=== PATIENT | female | born 1950 | race Caucasian/White ===

== ENCOUNTER 2019-08-16 08:12 | Outpatient (CLI) | payer MEDICARE, SELFPAY ==
[2019-08-16 09:06] LABS: Blood Urea Nitrogen 13 mg/dL (7-17); Calcium 8.7 mg/dL (8.4-10.2); Carbon Dioxide 27 mmol/L (22-30); Chloride 104 mmol/L (98-107); Cholesterol 157 mg/dL (0-200); Estimated Glomerular Filt Rate > 60; Glucose 104 mg/dL (65-105); HDL Direct 28 mg/dL; Magnesium 1.8 mg/dL (1.6-2.3); Potassium 4.7 mmol/L (3.4-5.0); Sodium 139 mmol/L (137-145); Triglycerides 146 mg/dL (<150)
[2019-08-16 09:17] LABS: LDL Cholesterol Direct 113 mg/dL
== END 2019-08-16 08:13 | disposition home or self-care (01) ==
PROVIDERS: PCP Family Medicine; Visit Provider Internal Medicine Cardiovascular Disease
DX: I48.91 Unspecified atrial fibrillation (principal); E78.5 Hyperlipidemia, unspecified
CPT/HCPCS: 36415; 80048; 80061; 83735

== ENCOUNTER 2020-03-10 14:35 | Outpatient (CLI) | payer MEDICARE, SELFPAY ==
--- NOTE | 2020-03-10 14:38 | ECHO_ITS ---
Patient Info Name: Susan Aranda Age: 69 years : 1950 Gender: Female Ht: 65 in Wt: 210 lbs BSA: 2.13 m2 HR: 80 bpm BP: 125 / 88 mmHg Heart Rhythm: Atrial Fibrillation Exam Date: 03/10/2020 3:22 PM Exam Location: [facility] Patient Status: Outpatient Admit Date: 03/10/2020 Staff Ordering Physician: Jevon Rosales DO Vice President Of Communications: Rod Torres RDCS Attending Provider: Jevon Rosales DO Referring Physician: Bobby AARON; Exam Type: CA echo doppler color flow Study Info Indications - I50.810 - Right heart failure; unspecified Complete two-dimensional, color flow and Doppler transthoracic echocardiogram is performed. History/Risk Factors Right heart failure. Summary 1. Complete two-dimensional, color flow and Doppler transthoracic echocardiogram is performed. 2. Left ventricular chamber dimension is normal. 3. Left ventricular systolic function is mildly reduced, estimated at 45-50%. 4. Left ventricular septal wall motion is abnormal with septal motion related to bundle branch block. 5. The left ventricular diastolic function is normal. 6. E/e' 7 is not elevated. 7. Atrial fibrillation. 8. Right ventricular chamber dimension is moderately enlarged. 9. Left atrial chamber dimension is moderately enlarged. 10. Right atrial chamber dimension is severely enlarged. 11. There is mild mitral valve regurgitation. 12. There is moderate tricuspid valve regurgitation. 13. No pulmonary hypertension, estimated pulmonary arterial systolic pressure is 28 mmHg. 14. Dilated inferior vena cava with <50% collapse upon inspiration consistent with significantly elevated right atrial pressure, 15 mmHg. Left Ventricle Atrial fibrillation. E/e' 7 is not elevated. Left ventricular chamber dimension is normal. Left ventricular systolic function is mildly reduced, estimated at 45-50%. Left ventricular septal wall motion is abnormal with septal motion related to bundle branch block. The left ventricular diastolic function is normal. Right Ventricle Right ventricular systolic function is normal with normal TAPSE 1.8 cm.. Right ventricular chamber dimension is moderately enlarged. Left Atria Left atrial chamber dimension is moderately enlarged. Right Atria Right atrial chamber dimension is severely enlarged. Aortic Valve The aortic valve is trileaflet. There is no aortic valve stenosis. There is no aortic valve regurgitation. Pulmonic Valve There is no pulmonic regurgitation. Mitral Valve There is no mitral valve stenosis. There is mild mitral valve regurgitation. Tricuspid Valve There is moderate tricuspid valve regurgitation. No pulmonary hypertension, estimated pulmonary arterial systolic pressure is 28 mmHg. Pericardium/Pleural There is no pericardial effusion. Inferior Vena Cava Dilated inferior vena cava with <50% collapse upon inspiration consistent with significantly elevated right atrial pressure, 15 mmHg. Aorta The aortic root size at the sinus of Valsalva is normal. Left Ventricular Outflow Tract Name Value Normal LVOT 2D LVOT Diameter 2.0 cm LVOT Doppler
== END 2020-03-10 14:36 | disposition home or self-care (01) ==
PROVIDERS: PCP Family Medicine; Visit Provider Internal Medicine Cardiovascular Disease
DX: I50.810 Right heart failure, unspecified (principal); I48.91 Unspecified atrial fibrillation; I34.0 Nonrheumatic mitral (valve) insufficiency; I36.1 Nonrheumatic tricuspid (valve) insufficiency
CPT/HCPCS: 93306

== ENCOUNTER 2020-04-13 10:28 | Outpatient (CLI) | payer MEDICARE, SELFPAY ==
--- NOTE | ~2020-04-13 | MM_ITS ---
EXAMINATION: MM screening angi BI w alon HISTORY: Screening TECHNIQUE: Craniocaudal and mediolateral oblique 3-D tomosynthesis images were obtained and synthetic 2-D images were generated. CAD analysis was submitted and interpreted. COMPARISON: Comparison to multiple prior studies sequentially, with oldest reviewed study dated 03/09. BREAST PARENCHYMAL COMPOSITION: There are scattered areas of fibroglandular density. FINDINGS: There is no evidence of suspicious mass, calcification, or architectural distortion to sugg est malignancy in either breast. There has been no suspicious interval change. IMPRESSION: 1. No mammographic evidence of malignancy. 2. Recommend routine screening mammography in one year. BI-RADS Category 1: Negative Reviewed, dictated and finalized at location A.
== END 2020-04-13 10:29 | disposition home or self-care (01) ==
LOC: ANHIMG 10:32
PROVIDERS: PCP Family Medicine; Visit Provider Family Medicine
DX: Z12.31 Encounter for screening mammogram for malignant neoplasm of breast (principal)
CPT/HCPCS: 77063; 77067

== ENCOUNTER 2021-04-20 09:42 | Outpatient (CLI) | payer MEDICARE, SELFPAY ==
[2021-04-20 10:41] LABS: Alanine Aminotransferase 13 U/L (4-35); Albumin Level 4.7 g/dL (3.5-5.1); Alkaline Phosphatase 86 U/L (38-126); Anion Gap 11 mmol/L (8-16); Aspartate Amino Transferase 25 U/L (14-36); Bilirubin,Total 0.7 mg/dL (0.2-1.3); Blood Urea Nitrogen 12 mg/dL (7-17); Calcium 9.3 mg/dL (8.4-10.2); Carbon Dioxide 29 mmol/L (22-30); Chloride 102 mmol/L (98-107); Cholesterol 133 mg/dL (0-200); Estimated Glomerular Filt Rate > 60; Glucose 110 mg/dL (65-110); HDL Direct 27 mg/dL; Potassium 4.1 mmol/L (3.4-5.0); Sodium 142 mmol/L (137-145); Triglycerides 61 mg/dL (<150)
[2021-04-20 10:52] LABS: LDL Cholesterol Direct 91 mg/dL
== END 2021-04-20 09:43 | disposition home or self-care (01) ==
PROVIDERS: PCP Family Medicine; Visit Provider Internal Medicine Cardiovascular Disease
DX: E78.5 Hyperlipidemia, unspecified (principal)
CPT/HCPCS: 36415; 80053; 80061; 83735

== ENCOUNTER 2021-06-24 09:26 | Outpatient (CLI) | payer MEDICARE, SELFPAY ==
--- NOTE | ~2021-06-24 | MM_ITS ---
EXAMINATION: MM screening angi BI w alon HISTORY: Screening mammogram TECHNIQUE: Craniocaudal and mediolateral oblique 3-D tomosynthesis images were obtained and synthetic 2-D images were generated. CAD analysis was submitted and interpreted. COMPARISON: 04/13/2020, 03/26/2019, 03/09/2017 bilateral screening mammogram examinations BREAST PARENCHYMAL COMPOSITION: The breasts are almost entirely fatty. FINDINGS: There is no evidence of suspicious mass, calcification, or architectural distortion to sugg est malignancy in either breast. There has been no suspicious interval change. IMPRESSION: 1. No mammographic evidence of malignancy. 2. Recommend routine screening mammography in one year. BI-RADS Category 1: Negative Reviewed, dictated and finalized at location A. RTISING SOLICITOR
--- NOTE | ~2021-06-24 | DEXA_ITS ---
Bone Density Report Name: CHRIS MENA Age: 71 Sex: Female Ethnicity: White Date of : 1950 Indication: hyperparathyroidism; height loss; prior fracture; Referring Provider: Eva Palmer Study: Bone densitometry was performed. Exam Date: June 24, 2021 Accession number: [id number] Bone Density: Region BMD T-score Z-score Classification AP Spine (L1, L4) 0.906 -1.2 1.0 Osteopenia Femoral Neck (Left) 0.645 -1.8 0.1 Osteopenia Total Hip (Left) 0.924 -0.1 1.5 Normal Total Hip Bilateral Avg 0.873 -0.6 1.1 Normal Femoral Neck (Right) 0.672 -1.6 0.3 Osteopenia Total Hip (Right) 0.821 -1.0 0.6 Normal World Health Organization criteria for BMD impression classify patients as: Normal (T-score at or above -1.0), Osteopenia (T-score between -1.0 and -2.5), or Osteoporosis (T-score at or below -2.5). 10-year Fracture Risk(1): Major Osteoporotic Fracture 17% Hip Fracture 3.1% Reported Risk Factors: [place] (), Neck BMD=0.645, BMI=33.8, previous fracture (1) FRAX(R) Version 3.08. Fracture probability calculated for an untreated patient. Fracture probability may be lower if the patient has received treatment. Previous Exams: Region Exam Age BMD T-score BMD Change BMD Change Date g/cm2 vs Baseline vs Previous Total Hip(Left) 06/24/2021 71 0.924 -0.1 -0.019(-2.0%) 0.018(2.0%) 03/26/2019 69 0.906 -0.3 -0.037(-3.9%)* -0.037(-3.9%)* 03/09/2017 66 0.943 0.0 Total Hip(Right) 06/24/2021 71 0.821 -1.0 -0.100(-10.8%) -0.042(-4.9%)* 03/26/2019 69 0.863 -0.6 -0.058(-6.3%)* -0.058(-6.3%)* 03/09/2017 66 0.921 -0.2 *Denotes significance at 95% confidence level, LSC for Total Hip = 0.027 g/cm2 Clinical Information Provided by Patient: Has had a low trauma fracture Has used the following medications: Vitamin D, Calcium Has the following medical conditions: Hyperparathyroidism Patient maximum height was 65 Menopause Age: 49 No regular weight bearing exercise Onset of menses at age 11 Number of children 4 Impression: The patient has low bone mass, based on the Left Femoral Neck T-score. The patient has an estimated ten-year risk of hip fracture of 3.1% and an estimated ten-year risk of major fracture of 17%, based on the WHO FRAX algorithm. The patient has risk factors, including: previous fracture. The BMD for the Total Hip(Right) decreased, changing by -4.9% since the last DXA exam. Discussion: BONE DENSITY IS LOW AT ONE OR MORE SKELETAL SITES. THE
== END 2021-06-24 09:27 | disposition home or self-care (01) ==
LOC: ANHIMG 09:28
PROVIDERS: PCP Family Medicine; Visit Provider Student in an Organized Health Care Education/Training Program
DX: Z12.31 Encounter for screening mammogram for malignant neoplasm of breast (principal); Z78.0 Asymptomatic menopausal state; M85.88 Other specified disorders of bone density and structure, other site; M85.852 Other specified disorders of bone density and structure, left thigh; M85.851 Other specified disorders of bone density and structure, right thigh
CPT/HCPCS: 77063; 77067; 77080

== ENCOUNTER 2021-11-04 12:27 | Outpatient (CLI) | payer MEDICARE, SELFPAY ==
--- NOTE | 2021-11-04 13:03 | ECHO_ITS ---
Patient Info Name: Susan Aranda Age: 71 years : 1950 Gender: Female Ht: 65 in Wt: 200 lbs BSA: 2.07 m2 HR: 72 bpm BP: 152 / 109 mmHg Technical Quality: Good Exam Date: 11/04/2021 1:20 PM Exam Location: [facility] Patient Status: Outpatient Admit Date: 11/04/2021 Staff Ordering Physician: Jevon Rosales DO [employer] Director: Toby Cruz RDCS, RT Attending Provider: Jevon Rosales DO Referring Physician: Bobby AARON; Exam Type: CA echo doppler color flow Study Info Indications I50.9 - Heart failure, unspecified Complete two-dimensional, color flow and Doppler transthoracic echocardiogram is performed. Strain analysis performed. Summary 1. Complete two-dimensional, color flow and Doppler transthoracic echocardiogram is performed. 2. Left ventricular chamber dimension is mildly enlarged. 3. Left ventricular systolic function is normal, estimated at 55-60%. 4. The left ventricular diastolic function is abnormal. 5. Global longitudinal strain is abnormal at -12.7%. 6. Atrial fibrillation. 7. Right ventricular chamber dimension is mildly enlarged. 8. Left atrial chamber dimension is moderately enlarged. 9. Right atrial chamber dimension is severely enlarged. 10. There is mild aortic valve sclerosis. 11. There is moderate to severe mitral valve regurgitation. ERO 0.1 cm2, RF 19%, RV 19 ml. 12. There is severe tricuspid valve regurgitation. 13. Mild pulmonary hypertension, estimated pulmonary arterial systolic pressure is 43 mmHg. 14. Small atheroma in anterior and posterior aortic root. 15. Dilated inferior vena cava with >50% collapse upon inspiration consistent with elevated right atrial pressure, 10 mmHg. Left Ventricle Atrial fibrillation. Global longitudinal strain is abnormal at -12.7%. Left ventricular chamber dimension is mildly enlarged. Left ventricular systolic function is normal, estimated at 55-60%. The left ventricular diastolic function is abnormal. Right Ventricle Right ventricular systolic function is normal and normal TAPSE 1.8 cm. Right ventricular chamber dimension is mildly enlarged. Left Atria Left atrial chamber dimension is moderately enlarged. Right Atria Right atrial chamber dimension is severely enlarged. Aortic Valve The aortic valve is trileaflet. There is mild aortic valve sclerosis. There is no aortic valve stenosis. There is no aortic valve regurgitation. Pulmonic Valve There is no pulmonic regurgitation. Mitral Valve There is moderate to severe mitral valve regurgitation. ERO 0.1 cm2, RF 19%, RV 19 ml. There is no mitral valve stenosis. Tricuspid Valve There is severe tricuspid valve regurgitation. Mild pulmonary hypertension, estimated pulmonary arterial systolic pressure is 43 mmHg. Pericardium/Pleural There is no pericardial effusion. Inferior Vena Cava Dilated inferior vena cava with >50% collapse upon inspiration consistent with elevated right atrial pressure, 10 mmHg. Aorta Small atheroma in anterior and posterior aortic root. The aortic root size at the sinus of Valsalva is normal. Left Ventricular Outflow Tract Name Value Normal LVOT 2D LVOT Diameter 2.0 cm LVOT Doppler
== END 2021-11-04 12:28 | disposition home or self-care (01) ==
PROVIDERS: PCP Family Medicine; Visit Provider Internal Medicine Cardiovascular Disease
DX: I50.810 Right heart failure, unspecified (principal); I08.3 Combined rheumatic disorders of mitral, aortic and tricuspid valves
CPT/HCPCS: 93306

== ENCOUNTER 2021-12-02 13:49 | Outpatient (CLI) | payer MEDICARE, SELFPAY ==
--- NOTE | ~2021-12-02 | XR_ITS ---
EXAMINATION: XR foot RT min 3V DATE: 12/02/2021 14:12 INDICATION: Pain, swelling and erythema at the right third toe. TECHNIQUE: Dorsoplantar, two oblique and lateral views of the right foot were obtained. COMPARISON: None. FINDINGS: Alignment is normal. No fracture. Polyarticular arthritis, moderate severity at the third and fourth distal interphalangeal joints with central gullwing erosions at the base of the third and fourth dist al phalanges. There is soft tissue swelling about the third distal interphalangeal joint. Mild osteoa rthritis at the first metatarsophalangeal and a few additional interphalangeal joints. Small plantar calcaneal spur. IMPRESSION: 1. 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 Reviewed, dictated and finalized at location B. IMPRESSION: 1. 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
[2021-12-02 14:30] LABS: Basophils Absolute Auto 0.1 K/mm3 (0.0-0.1); Basophils Percent Auto 0.6 % (0.2-1.2); Eosinophils Absolute Auto 0.1 K/mm3 (0-0.3); Eosinophils Percent Auto 1.3 % (0-4.4); Hemoglobin 12.8 g/dL (12.0-15.0); Immature Granulocyte Absolute 0.05 K/mm3 (0.00-0.031); Immature Granulocyte Percent A 0.5 % (0-0.5); Lymphocytes Absolute Auto 3.15 K/mm3 (0.9-3.2); Lymphocytes Percent Auto 29.7 % (18.3-44.2); Mean Corpuscular Hemoglobin 31.3 pg (26-34); Mean Corpuscular Volume 97.8 fl (80-100); Mean Platelet Volume 9.4 fl (7.4-10.4); Monocytes Absolute Auto 0.9 K/mm3 (0.1-0.6); Neutrophils Absolute Auto 6.4 K/mm3 (1.3-6.7); Neutrophils Percent Auto 59.9 % (45.5-73.1); Platelet Count Result 261 k/mm3 (150-375); Red Blood Count 4.09 M/mm3 (4.2-5.4); Red Cell Distribution Width 14.5 % (11.5-14.5); White Blood Count 10.6 K/mm3 (4.5-10.0)
[2021-12-02 14:49] LABS: Alanine Aminotransferase 18 U/L (6-35); Albumin Level 4.5 g/dL (3.5-5.1); Alkaline Phosphatase 76 U/L (38-126); Anion Gap 9 mmol/L (8-16); Aspartate Amino Transferase 28 U/L (14-36); Bilirubin,Total 0.6 mg/dL (0.2-1.3); Blood Urea Nitrogen 16 mg/dL (7-17); Calcium 9.6 mg/dL (8.4-10.2); Carbon Dioxide 25 mmol/L (22-30); Chloride 106 mmol/L (98-107); Estimated Glomerular Filt Rate > 60; Glucose 90 mg/dL (65-110); Potassium 4.3 mmol/L (3.4-5.0); Sodium 140 mmol/L (137-145); Uric Acid 8.8 mg/dL (2.5-7.5)
[2021-12-02 18:01] LABS: Vitamin D 25 Hydroxy 31.4 ng/mL
[2021-12-02 18:44] LABS: Hemoglobin A1C 6.1 % (<5.7)
== END 2021-12-02 13:50 | disposition home or self-care (01) ==
PROVIDERS: PCP Family Medicine; Visit Provider Family Medicine
DX: M79.674 Pain in right toe(s) (principal); M79.89 Other specified soft tissue disorders; R73.9 Hyperglycemia, unspecified; M10.00 Idiopathic gout, unspecified site; I48.91 Unspecified atrial fibrillation; E55.9 Vitamin D deficiency, unspecified; M19.071 Primary osteoarthritis, right ankle and foot
CPT/HCPCS: 36415; 73630; 80053; 82306; 83036; 84443; 84550; 85025

== ENCOUNTER 2022-05-10 08:29 | Outpatient (CLI) | payer MEDICARE, SELFPAY ==
--- NOTE | 2022-05-10 08:54 | ECHO_ITS ---
Patient Info Name: Susan Aranda Age: 72 years : 1950 Gender: Female Ht: 65 in Wt: 190 lbs BSA: 2.02 m2 HR: 78 bpm BP: 130 / 67 mmHg Technical Quality: Good Exam Date: 05/10/2022 9:19 AM Exam Location: [facility] Patient Status: Outpatient Admit Date: 05/10/2022 Staff Ordering Physician: Jevon Rosales DO Production Floater: Toby Cruz RDCS, RT Attending Provider: Jevon Rosales DO Referring Physician: Bobby AARON; Exam Type: CA echo doppler color flow Study Info Indications R01.1 - Cardiac murmur, unspecified Complete two-dimensional, color flow and Doppler transthoracic echocardiogram is performed. Strain analysis performed. Summary 1. Complete two-dimensional, color flow and Doppler transthoracic echocardiogram is performed. 2. Left ventricular chamber dimension is normal. 3. Left ventricular systolic function is normal, estimated at 60-65%. 4. The left ventricular diastolic function is normal. 5. E/e' 8 is minimally elevated. 6. Global longitudinal strain is abnormal at -12.6%. 7. Atrial fibrillation. 8. Left atrial chamber dimension is severely enlarged. 9. Right atrial chamber dimension is severely enlarged. 10. There is moderate aortic valve sclerosis. 11. There is moderate to severe mitral valve regurgitation. 12. There is moderate tricuspid valve regurgitation. 13. No pulmonary hypertension, estimated pulmonary arterial systolic pressure is 32 mmHg. 14. Dilated inferior vena cava with >50% collapse upon inspiration consistent with elevated right atrial pressure, 10 mmHg. Left Ventricle E/e' 8 is minimally elevated. Atrial fibrillation. Global longitudinal strain is abnormal at -12.6%. Left ventricular chamber dimension is normal. Left ventricular systolic function is normal, estimated at 60-65%. The left ventricular diastolic function is normal. Right Ventricle Right ventricular chamber dimension is normal. Right ventricular systolic function is normal. Left Atria Left atrial chamber dimension is severely enlarged. Right Atria Right atrial chamber dimension is severely enlarged. Aortic Valve The aortic valve is trileaflet. There is moderate aortic valve sclerosis. There is no aortic valve stenosis. There is no aortic valve regurgitation. Pulmonic Valve There is no pulmonic regurgitation. Mitral Valve There is no mitral valve stenosis. There is moderate to severe mitral valve regurgitation. Tricuspid Valve There is moderate tricuspid valve regurgitation. No pulmonary hypertension, estimated pulmonary arterial systolic pressure is 32 mmHg. Pericardium/Pleural There is no pericardial effusion. Inferior Vena Cava Dilated inferior vena cava with >50% collapse upon inspiration consistent with elevated right atrial pressure, 10 mmHg. Aorta The aortic root size at the sinus of Valsalva is normal. Left Ventricular Outflow Tract Name Value Normal LVOT 2D LVOT Diameter 1.9 cm LVOT Doppler LVOT Peak Gradient 6 mmHg LVOT Mean Gradient 3 mmHg LVOT VTI 25 cm
== END 2022-05-10 08:30 | disposition home or self-care (01) ==
PROVIDERS: PCP Family Medicine; Visit Provider Internal Medicine Cardiovascular Disease
DX: I48.91 Unspecified atrial fibrillation (principal); I36.1 Nonrheumatic tricuspid (valve) insufficiency; I35.1 Nonrheumatic aortic (valve) insufficiency
CPT/HCPCS: 93306

== ENCOUNTER 2022-06-06 10:04 | Outpatient (CLI) | payer MEDICARE, SELFPAY ==
[2022-06-06 20:07] LABS: Hemoglobin A1C 6.3 % (<5.7)
[2022-06-06 20:17] LABS: Alanine Aminotransferase 23 U/L (6-35); Albumin Level 4.4 g/dL (3.5-5.1); Alkaline Phosphatase 77 U/L (38-126); Anion Gap 10 mmol/L (8-16); Aspartate Amino Transferase 42 U/L (14-36); Bilirubin,Total 0.6 mg/dL (0.2-1.3); Blood Urea Nitrogen 16 mg/dL (7-17); Carbon Dioxide 29 mmol/L (22-30); Chloride 102 mmol/L (98-107); Estimated Glomerular Filt Rate > 60; Glucose 96 mg/dL (65-110); Potassium 4.4 mmol/L (3.4-5.0); Sodium 141 mmol/L (137-145)
== END 2022-06-06 10:05 | disposition home or self-care (01) ==
LOC: ANHGOSHLAB 10:08
PROVIDERS: PCP Family Medicine; Visit Provider Family Medicine
DX: R73.03 Prediabetes (principal); I10 Essential (primary) hypertension
CPT/HCPCS: 36415; 80053; 83036

== ENCOUNTER 2022-11-21 08:51 | Outpatient (CLI) | payer MEDICARE, SELFPAY ==
--- NOTE | ~2022-11-21 | MM_ITS ---
EXAMINATION: MM screening [facility] BI w alon HISTORY: Screening mammogram TECHNIQUE: Craniocaudal and mediolateral oblique 3-D tomosynthesis images were obtained and synthetic 2-D images were generated. CAD analysis was submitted and interpreted. COMPARISON: 06/24/2021, 04/13/2020, 03/26/2019 BREAST PARENCHYMAL COMPOSITION: The breasts are almost entirely fatty. FINDINGS: No suspicious mass, calcification, or architectural distortion are identified in either trae ast to suggest malignancy. There has been no suspicious interval change. IMPRESSION: 1. No mammographic evidence of malignancy. 2. Recommend routine screening mammography in one year. BI-RADS Category 1: Negative Reviewed, dictated and finalized at location A.
== END 2022-11-21 08:52 | disposition home or self-care (01) ==
LOC: ANHIMG 08:51
PROVIDERS: PCP Family Medicine; Visit Provider Student in an Organized Health Care Education/Training Program
DX: Z12.31 Encounter for screening mammogram for malignant neoplasm of breast (principal)
CPT/HCPCS: 77063; 77067

== ENCOUNTER 2022-12-06 09:32 | Outpatient (CLI) | payer MEDICARE, SELFPAY ==
[2022-12-06 09:35] LABS: Appearance Urine Cloudy (Clear); Bacteria Urine None Seen /hpf; Bilirubin Urine Negative (Negative); Blood Urine 3+ (Negative); Color Urine Yellow (Yellow); Glucose Urine UA Negative (Negative); Ketones Urine Negative (Negative); Leukocyte Esterase Ur 3+ LEU/UL (Negative); Nitrate Urine Negative (Negative); Non Pathogenic Casts 0-2; Protein Urine 2+ mg/dL (Negative); RBC Urine 21-50 /hpf (0-2); Specific Grav Ur 1.016 (1.001-1.035); Squamous Epithelial Cell Urine None seen /hpf (Few); Urobilinogen Urine 0.2 mg/dL (<2.0); WBC Urine >100 /hpf
[2022-12-06 09:39] LABS: Add Urine Microscopic? YES
== END 2022-12-06 09:33 | disposition home or self-care (01) ==
LOC: ANHLAB 09:32
PROVIDERS: PCP Family Medicine; Visit Provider Family Medicine
DX: R30.0 Dysuria (principal)
CPT/HCPCS: 81001; 87077; 87086; 87186

== ENCOUNTER 2023-03-16 09:00 | Outpatient (CLI) | payer MEDICARE, SELFPAY ==
[2023-03-16 18:48] LABS: Alanine Aminotransferase 18 U/L (6-35); Albumin Level 4.7 g/dL (3.5-5.1); Alkaline Phosphatase 80 U/L (38-126); Anion Gap 10 mmol/L (8-16); Aspartate Amino Transferase 34 U/L (14-36); Bilirubin,Total 0.6 mg/dL (0.2-1.3); Blood Urea Nitrogen 18 mg/dL (7-17); Calcium 9.5 mg/dL (8.4-10.2); Carbon Dioxide 28 mmol/L (22-30); Chloride 102 mmol/L (98-107); Cholesterol 214 mg/dL (0-200); Estimated Glomerular Filt Rate > 60; Glucose 109 mg/dL (65-110); HDL Direct 30 mg/dL; Potassium 4.8 mmol/L (3.4-5.0); Sodium 140 mmol/L (137-145); Triglycerides 186 mg/dL (<150); Uric Acid 5.6 mg/dL (2.5-7.5)
[2023-03-16 18:56] LABS: Basophils Absolute Auto 0.1 K/mm3 (0.0-0.1); Basophils Percent Auto 0.7 % (0.2-1.2); Eosinophils Absolute Auto 0.1 K/mm3 (0-0.3); Eosinophils Percent Auto 1.5 % (0-4.4); Hematocrit 44.8 % (37.0-47.0); Hemoglobin 14.3 g/dL (12.0-15.0); Immature Granulocyte Absolute 0.03 K/mm3 (0.00-0.031); Immature Granulocyte Percent A 0.3 % (0-0.5); Lymphocytes Absolute Auto 2.74 K/mm3 (0.9-3.2); Lymphocytes Percent Auto 30.2 % (18.3-44.2); Mean Corpuscular HGB Conc 31.9 g/dl (32-36); Mean Corpuscular Hemoglobin 30.6 pg (26-34); Mean Corpuscular Volume 95.9 fl (80-100); Mean Platelet Volume 9.8 fl (7.4-10.4); Monocytes Absolute Auto 0.7 K/mm3 (0.1-0.6); Monocytes Percent Auto 7.8 % (2.6-8.5); Neutrophils Absolute Auto 5.4 K/mm3 (1.3-6.7); Neutrophils Percent Auto 59.5 % (45.5-73.1); Platelet Count Result 304 k/mm3 (150-375); Red Blood Count 4.67 M/mm3 (4.2-5.4); Red Cell Distribution Width 14.9 % (11.5-14.5); White Blood Count 9.1 K/mm3 (4.5-10.0)
[2023-03-16 18:59] LABS: LDL Cholesterol Direct 130 mg/dL
[2023-03-16 20:14] LABS: Hemoglobin A1C 6.2 % (<5.7)
[2023-03-16 20:22] LABS: Vitamin D 25 Hydroxy 51.7 ng/mL
== END 2023-03-16 09:01 | disposition home or self-care (01) ==
PROVIDERS: PCP Family Medicine; Visit Provider Family Medicine
DX: I10 Essential (primary) hypertension (principal); E78.5 Hyperlipidemia, unspecified; Z00.00 Encounter for general adult medical examination without abnormal findings; E53.8 Deficiency of other specified B group vitamins; M10.00 Idiopathic gout, unspecified site; R73.03 Prediabetes; E55.9 Vitamin D deficiency, unspecified; I50.810 Right heart failure, unspecified
CPT/HCPCS: 36415; 80053; 80061; 82306; 82607; 83036; 84443; 84550; 85025

== ENCOUNTER 2023-12-28 13:43 | Outpatient (CLI) | payer MEDICARE, SELFPAY ==
--- NOTE | 2023-12-28 14:01 | ECHO_ITS ---
Patient Info Name: Susan Aranda Age: 73 years : 1950 Gender: Female Ht: 65 in Wt: 195 lbs BSA: 2.05 m2 HR: 72 bpm BP: 147 / 87 mmHg Heart Rhythm: Atrial Fibrillation Technical Quality: Fair Exam Date: 12/28/2023 2:06 PM Exam Location: [facility] Patient Status: Outpatient Admit Date: 12/28/2023 Staff Ordering Physician: Jevon Rosales DO Boat Engine Mechanic: Caitlin Curiel RDCS Attending Provider: Jevon Rosales DO Referring Physician: Bobby AARON; Exam Type: CA echo dop color flow w con Study Info Indications I34.0 - Nonrheumatic mitral (valve) insufficiency Complete two-dimensional, color flow and Doppler transthoracic echocardiogram is performed. Summary 1. Complete two-dimensional, color flow and Doppler transthoracic echocardiogram is performed. 2. Left ventricular chamber dimension is normal. 3. Left ventricular systolic function is normal, estimated at 65-70%. 4. The left ventricular diastolic function is normal. 5. E/e' 8 is minimally elevated. 6. Atrial fibrillation. 7. Right ventricular chamber dimension is moderately enlarged. 8. Left atrial chamber dimension is moderately enlarged. 9. Right atrial chamber dimension is severely enlarged. 10. There is moderate aortic valve sclerosis. 11. There is mild aortic valve stenosis with a peak velocity of 186.88 cm/s, mean gradient of 7 mmHg, and aortic valve area of 1.71 cm2. 12. There is mild mitral valve regurgitation. 13. There is moderate tricuspid valve regurgitation. 14. No pulmonary hypertension, estimated pulmonary arterial systolic pressure is 27 mmHg. Left Ventricle E/e' 8 is minimally elevated. Atrial fibrillation. Left ventricular chamber dimension is normal. Left ventricular systolic function is normal, estimated at 65-70%. The left ventricular diastolic function is normal. Right Ventricle Right ventricular systolic function is normal and with normal TAPSE 2.2 cm. Right ventricular chamber dimension is moderately enlarged. Left Atria Left atrial chamber dimension is moderately enlarged. Right Atria Right atrial chamber dimension is severely enlarged. Aortic Valve The aortic valve is trileaflet. There is moderate aortic valve sclerosis. There is mild aortic valve stenosis with a peak velocity of 186.88 cm/s, mean gradient of 7 mmHg, and aortic valve area of 1.71 cm2. There is no aortic valve regurgitation. Pulmonic Valve There is no pulmonic regurgitation. Mitral Valve There is no mitral valve stenosis. There is mild mitral valve regurgitation. Tricuspid Valve There is moderate tricuspid valve regurgitation. No pulmonary hypertension, estimated pulmonary arterial systolic pressure is 27 mmHg. Pericardium/Pleural There is no pericardial effusion. Inferior Vena Cava Normal inferior vena cava with >50% collapse upon inspiration consistent with normal right atrial pressure, 5 mmHg. Aorta The aortic root size at the sinus of Valsalva is normal. Left Ventricular Outflow Tract Name Value Normal LVOT 2D LVOT Diameter 1.88 cm LVOT Doppler LVOT Peak Gradient 4 mmHg LVOT Mean Gradient 2 mmHg LVOT VTI 19.94 cm LVOT VTI/AV
== END 2023-12-28 13:44 | disposition home or self-care (01) ==
PROVIDERS: PCP Family Medicine; Visit Provider Internal Medicine Cardiovascular Disease
DX: I34.0 Nonrheumatic mitral (valve) insufficiency (principal); I35.1 Nonrheumatic aortic (valve) insufficiency; I36.1 Nonrheumatic tricuspid (valve) insufficiency
CPT/HCPCS: 93306

== ENCOUNTER 2024-06-04 08:03 | Outpatient (CLI) | payer MEDICARE, SELFPAY ==
[2024-06-04 09:09] LABS: Alanine Aminotransferase 17 U/L (6-35); Albumin Level 4.7 g/dL (3.5-5.1); Alkaline Phosphatase 82 U/L (38-126); Anion Gap 10 mmol/L (4-12); Aspartate Amino Transferase 25 U/L (14-36); Bilirubin,Total 0.6 mg/dL (0.2-1.3); Blood Urea Nitrogen 21 mg/dL (7-17); Calcium 9.2 mg/dL (8.4-10.2); Carbon Dioxide 27 mmol/L (22-30); Chloride 103 mmol/L (98-107); Cholesterol 187 mg/dL (0-200); Estimated Glomerular Filt Rate > 60; Glucose 116 mg/dL (65-110); HDL Direct 33 mg/dL; Potassium 4.1 mmol/L (3.4-5.0); Sodium 140 mmol/L (137-145); Triglycerides 199 mg/dL (<150)
[2024-06-04 09:20] LABS: LDL Cholesterol Direct 100 mg/dL
[2024-06-04 10:03] LABS: Hemoglobin A1C 6.3 % (<5.7)
== END 2024-06-04 08:04 | disposition home or self-care (01) ==
PROVIDERS: PCP Family Medicine; Visit Provider Internal Medicine Cardiovascular Disease
DX: R73.03 Prediabetes (principal); I50.812 Chronic right heart failure
CPT/HCPCS: 36415; 80053; 80061; 83036

== ENCOUNTER 2024-06-05 08:16 | Outpatient (CLI) | payer MEDICARE, SELFPAY ==
--- NOTE | ~2024-06-05 | MM_ITS ---
EXAMINATION: MM screening angi BI w alon HISTORY: Screening TECHNIQUE: Craniocaudal and mediolateral oblique 3-D tomosynthesis images were obtained and synthetic 2-D images were generated. CAD analysis was submitted and interpreted. COMPARISON: Comparison to multiple prior studies sequentially, with oldest reviewed study dated 03/09. BREAST PARENCHYMAL COMPOSITION: Not dense: There are scattered areas of fibroglandular density. FINDINGS: There is no evidence of suspicious mass, calcification, or architectural distortion to sugg est malignancy in either breast. There has been no suspicious interval change. IMPRESSION: 1. No mammographic evidence of malignancy. 2. Recommend routine screening mammography in one year. BI-RADS Category 1: Negative Reviewed, dictated and finalized at location [] GETTER
== END 2024-06-05 08:17 | disposition home or self-care (01) ==
LOC: ANHIMG 08:18
PROVIDERS: PCP Family Medicine; Visit Provider Obstetrics & Gynecology
DX: Z12.31 Encounter for screening mammogram for malignant neoplasm of breast (principal)
CPT/HCPCS: 77063; 77067

== ENCOUNTER 2024-09-18 08:21 | Outpatient (CLI) | payer MEDICARE, SELFPAY ==
--- OUTSIDE RECORDS SUMMARY | 2024-09-18 08:40 | XMS_ITS | Referral Summary ---
Author Organization [facility] Address [address] [place] [address] Care Team Providers Care Research Assoc Name Role Phone Ruthann Landaverde MD Primary Care Provider Allergies No known active allergies Medications PROAIR HFA 90 mcg/actuation inhaler INHALE 2 PUFFS BY MOUTH FOR 10 DAYS THEN NEEDED FOR COUGH. 0 9 Active ELIQUIS 5 mg tablet Take 5 mg by mouth 2 (two) times a day 2 9 Active CARTIA XT 240 mg 24 hr capsule Take 240 mg by mouth daily 5 9 Active furosemide (LASIX) 20 mg tablet TAKE 2 TABLETS BY MOUTH ONCE DAILY FOR 3 DAYS THEN 1 TABLET DAILY. 5 9 Active gabapentin (NEURONTIN) 100 mg capsule Take 100 mg by mouth daily 1 9 Active losartan (COZAAR) 100 mg tablet 9 Active omeprazole (PriLOSEC) 40 mg capsule Take 40 mg by mouth 2 9 Active magnesium oxide (MAG-OX) 400 mg (241.3 mg elemental magnesium) tablet Take 1 tablet by mouth daily 0 Active cetirizine (ZyrTEC) 10 mg tablet Take 10 mg by mouth daily Active fluticasone propionate (FLONASE) 50 mcg/actuation nasal spray Administer 2 sprays into each nostril daily 1 Inhaler 0 Active fluticasone propionate (FLOVENT HFA) 220 mcg/actuation inhaler Inhale 2 puffs 2 (two) times a day Rinse mouth with water after use. Do not swallow. 1 Inhaler 11 0 Active ipratropium (ATROVENT) 0.03 % nasal spray Administer 2 sprays into each nostril 3 (three) times a day 5 mL 3 0 Active montelukast (SINGULAIR) 10 mg tablet Take 1 tablet (10 mg total) by mouth nightly 30 tablet 11 1 Active Active Problems Problem Noted Date Diagnosed Date Chronic cough 06/29/2019 Assessment & Plan (02/06/2020 11:10 AM CDT): Continue with Flonase, ipratropium nasal spray and Zyrtec. If symptoms persist may need a referral to Allergy and immunology. Assessment & Plan (11/07/2019 4:48 PM CDT): Methacholine challenge test is normal. DC QVAR. Continue with Zyrtec and Flonase. Assessment & Plan (08/10/2019 4:01 PM DISTRIBUTION SUPERINTENDENT): I will repeat her ESR. Obtain methacholine challenge test. Currently she is off the QVAR. If methacholine challenge test is normal she does not need to go back on QVAR. Assessment & Plan (06/29/2019 11:29 AM DISTRIBUTION SUPERINTENDENT): Chronic cough with differential off reactive airway disease, post infectious bronchitis versus FELICIA inhibitor induced. I will give her a trial of inhaled corticosteroids with p.o. steroids and follow symptoms. Obtain IgE level, CRP and ESR. Once cough is improved will obtain methacholine challenge test. Allergic rhinitis 06/29/2019 Assessment & Plan (02/06/2020 11:10 AM CDT): As mentioned above will continue with current treatment plan. Assessment & Plan (08/10/2019 4:01 PM DISTRIBUTION SUPERINTENDENT): Continue with Flonase/Zyrtec and intranasal ipratropium. Assessment & Plan (06/29/2019 11:29 AM DISTRIBUTION SUPERINTENDENT): Continue with Flonase and Zyrtec. Add intranasal ipratropium. Gastroesophageal reflux disease without esophagi tis 06/29/2019 Assessment & Plan (02/06/2020 11:11 AM CDT): Continue with omeprazole. Assessment & Plan (11/07/2019 4:48 PM CDT): Continue with omeprazole. Assessment & Plan (08/10/2019 4:01 PM DISTRIBUTION SUPERINTENDENT): Continue with omeprazole. Assessment & Plan (06/29/2019 11:30 AM DISTRIBUTION SUPERINTENDENT): Continue with omeprazole. Immunizations Immunization Administration Dates Next Due DT 07/10/2004 Influenza, Quadrivalent, Spl it, Preservative Free, Intramuscular 03/21/2019 Influenza, Trivalent, High D ose, Split, Preservative Free, Intramuscular 05/11/2015,05/02/2012 Influenza, Trivalent, IM (MDV) 05/10/2011,2009 Influenza, Unspecified 05/24/2016,05/11/2015 Moderna SARS-CoV-2 Monovalent Vaccination (12+ Y RS) 09/28/2020,08/27/2020 Pneumococcal Conjugate PCV 13 09/12/2019 Pneumococcal Polysaccharide PPV23 05/05/2014 Tdap 07/10/2012,10/07/2011 ZOSTER LIVE 02/26/2015 Social History Tobacco Use Types Packs/Day Years Used Date Smoking Tobacco: Never Smokeless Tobacco: Never Personal Safety Answer Date Recorded Getting School Help Needed Not on file 09/21 Comments Unknown Sex and Gender Information Value Date Recorded Sex Assigned at Not on file Legal Sex Female 9:59 AM DISTRIBUTION SUPERINTENDENT Gender Identity Not on file Sexual Orientation Not on file Last Filed Vital Signs Vital Sign Reading Time Taken Comments Blood Pressure 118/78 02/11/2021 8:43 AM CDT Pulse 73 02/11/2021 8:43 AM CDT Temperature 36.4 C (97.5 F) 02/11/2021 8:43 AM CDT Respiratory Rate 18 02/11/2021 8:43 AM CDT Oxygen Saturation 98% 02/11/2021 8:43 AM CDT Inhaled Oxygen Concentration - - Weight 93 kg (205 lb) 02/11/2021 8:43 AM CDT Height 165.1 cm (5' 5 ) 02/06/2020 9:20 AM CDT Body Mass Index 34.11 02/06/2020 9:20 AM CDT Plan of Treatment Not on file Procedures Procedure Name Priority Date/Time Associated Diagnosis Comments COLONOSCOPY REPORT 04/15/2015 from Last 3 Months or Most Recently Relevant to Health Maintenance Results * COLONOSCOPY REPORT (04/15/2015) Anatomical Region Laterality Modality Other Narrative 04/15/2015 Ordered by an unspecified provider. us Historical Provider GI PROCEDURE ORDERABLES F inal Result from Last 3 Months or Most Recently Relevant to Health Maintenance Insurance MEDICARE SOLUTIONS Care Teams Research Assoc Relationship Specialty Start Date End Date Ruthann Landaverde MD PCP - General Family Practice 02/11/21
--- OUTSIDE RECORDS SUMMARY | 2024-09-18 08:40 | XMS_ITS | Encounter Summary ---
Author Organization [facility] Address [address] [place] [address] Care Team Providers Care Supervisor Sewer System Name Role Phone Unavailable Primary Care Provider Unavailabl e Encounter Details Date Type Department Care Team (Late st Contact Info) Description 06/19/2023 Lab Requisition [facility] - DermPath Lab [address] [facility] [place] [id number] Lisa Shore MD [address] [facility] [address] [place] [address] Social History Tobacco Use Types Packs/Day Years Used Date Smoking Tobacco: Never Smokeless Tobacco: Never Alcohol Use Standard Drinks/Week Comments No 0 (1 standard drink = 0.6 oz pur e alcohol) Sex and Gender Information Value Date Recorded Sex Assigned at Not on file Gender Identity Not on file Sexual Orientation Not on file documented as of this encounter Plan of Treatment Not on file documented as of this encounter Goals Goal Patient Goal Type Associated Problems Recent Progress Patient-Stated? Author Blood Pressure < 140/90 Blood Pressure 146/93( 016 10:59 AM CDT) No Miladys Gardner documented as of this encounter Procedures Procedure Name Priority Date/Time Associated Diagnosis Comments DERMATOPATHOLOGY Routine 06/19/2023 1:2 3 PM GRAIN OILSEED OR PASTURE GROWER documented in this encounter Results * DERMATOPATHOLOGY (06/19/2023 1:23 PM GRAIN OILSEED OR PASTURE GROWER) Case Report Dermatopathology Report Case: [id number] Authorizing Provider: Lisa Shore MD Collected: 06/19/2023 01:23 PM Ordering Location: [facility] DermPath Lab Received: 06/20/2023 11:36 AM Pathologist: Jayne Conte MD Specimens: A) - Skin, left garcia B) - Skin, left back 1:14 PM [facility] DERMATOPATHOLOGY LABORATORY Final Diagnosis Specimen A. 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 SKIN, left back: EPIDERMAL NECROSIS SUGGESTIVE OF EXCORIATION (L98.499) 1:14 PM [facility] DERMATOPATHOLOGY LABORATORY Clinical History A-B: R/O BCC, SCC; Delevan Papule 1:14 PM [facility] DERMATOPATHOLOGY LABORATORY Gross Description Specimen A: Received is one formalin filled container labeled with the patient's name and designated left garcia. The specimen consists of a shave biopsy measuring 8x7x2 mm. Jar 0. Specimen B: Received is one formalin filled container labeled with the patient's name and designated left back. The specimen consists of a shave biopsy measuring 7x6x1 mm. Jar 0. 1:14 PM [facility] DERMATOPATHOLOGY LABORATORY Microscopic Description Specimen A. SKIN, left garcia: The epidermis is focally necrotic and covered with a subcorneal pustule and inflamed serum scale-crust containing bacteria. There is fibrin at the base. Specimen B. SKIN, left back: The epidermis is focally necrotic and covered with a scale-crust. There is fibrin at the base. 1:14 PM [facility] DERMATOPATHOLOGY LABORATORY Disclaimer An external and internal positive and negative controls are appropriate for the histochemical, immunohistochemical and immunofluorescence stain(s) in this case (if any), except where stated explicitly. The performance characteristics of the stain(s) cited in this report were developed and its performance characteristic determined by the Dermatopathology Laboratory at [facility], directed by Dr. Wilmer Turner. These tests need not be, and therefore are not, approved by the [place] Food and Drug Administration. The tests are used for clinical purposes. Billing Codes Specimen Charges Stain Charges 73708 24980 1 1 3 1:14 PM [facility] DERMATOPATHOLOGY LABORATORY Embedded Images 1:14 PM [facility] DERMATOPATHOLOGY LABORATORY Pathology/Cytology TISSUE SPECIMEN FROM SKIN / Unknown 06/19/2023 1:23 PM GRAIN OILSEED OR PASTURE GROWER 06/20/2023 11:36 AM GRAIN OILSEED OR PASTURE GROWER Miscellaneous samples (specimen) TISSUE SPECIMEN FROM SKIN / Unknown 06/19/2023 1:23 PM GRAIN OILSEED OR PASTURE GROWER 06/20/2023 11:36 AM GRAIN OILSEED OR PASTURE GROWER Lisa Shore MD LAB - PATHOLOGY/CYTO LOGY ORDERABLES DERMATOPATHOLOGY LABORATORY [facility] - Department of Dermatology [facility] Specialized Medicine [address] [place] [address], [address] [address] [phone] documented in this encounter Visit Diagnoses Not on filedocumented in this encounter
--- OUTSIDE RECORDS SUMMARY | 2024-09-18 08:40 | XMS_ITS | Encounter Summary ---
Author Organization [facility] Health Address [address] [facility] [place] [address] Care Team Providers Care Neuropsychiatrist Name Role Phone Iris Ruano MD Unavailable [phone] Encounter Details Date Type Department Care Team (Late st Contact Info) Description 01/30/2019 Lab Requisition [facility] Care DermPath Lab [address] [facility] [place] [phone] Abdelrahman Jones MD [address] [place] [address] Social History Tobacco Use Types Packs/Day Years [...] Priority Date/Time Associated Diagnosis Comments DERMATOPATHOLOGY Routine 01/29/2019 12:0 0 AM CDT documented in this encounter Results * DERMATOPATHOLOGY (01/29/2019 12:00 AM CDT) Case Report Dermatopathology Report Case: [id number] Authorizing Provider: Abdelrahman Jones MD Collected: 01/29/2019 12:00 AM Pathologist: Jayne Conte MD Received: 01/30/2019 12:43 PM Specimen: Skin, left upper lat back 1:14 PM CDT DERMATOPATHOLOGY LABORATORY Final Diagnosis Specimen A. SKIN, left upper lat back: LICHEN PLANUS-LIKE KERATOSIS (BENIGN LICHENOID KERATOSIS) (L82.1) 1:14 PM CDT DERMATOPATHOLOGY LABORATORY Clinical History R/O Dys nevus. 1:14 PM CDT DERMATOPATHOLOGY LABORATORY Gross Description Specimen A: Received is one formalin filled container labeled with the patient's name and designated left upper lat back. The specimen consists of a shave biopsy measuring [id number]. Jar 0. 1:14 PM CDT DERMATOPATHOLOGY LABORATORY Microscopic Description Specimen A. SKIN, left upper lat back: The epidermis is mildly acanthotic. There is a lichenoid infiltrate with vacuolar changes of basilar keratinocytes and scattered necrotic keratinocytes. 1:14 PM CDT DERMATOPATHOLOGY LABORATORY Disclaimer An external and internal positive and negative controls are appropriate for the histochemical, immunohistochemical and immunofluorescence stain(s) in this case (if any), except where stated explicitly. The performance characteristics of the stain(s) cited in this report were developed and its performance characteristic determined by the Dermatopathology Laboratory at [facility], directed by Dr. Wilmer Turner. These tests need not be, and therefore are not, approved by the [place] Food and Drug Administration. The tests are used for clinical purposes. Billing Codes Specimen Charges Stain Charges 75037 1 1:14 PM CDT DERMATOPATHOLOGY LABORATORY Embedded Images 1:14 PM CDT DERMATOPATHOLOGY LABORATORY Pathology/Cytolog y TISSUE SPECIMEN FROM SKIN / Unknown 01/29/2019 01/30/2019 12:43 PM CDT Abdelrahman Jones MD LAB - PATHOLOGY/CYTO LOGY ORDERABLES DERMATOPATHOLOGY LABORATORY [facility] - Department of Dermatology [address] [place] [address] 5th Floor Lab [address] [phone] documented in this encounter Visit Diagnoses Not on filedocumented in this encounter Care Teams Neuropsychiatrist Relationship Specialty Start Date End Date Iris Ruano MD [address] [place] [address] PCP - Attributed-[facility] 05/31/18 documented as of this encounter
--- OUTSIDE RECORDS SUMMARY | 2024-09-18 08:40 | XMS_ITS | Clinical Summary ---
Author Organization [facility] Address [address] [place] [address] Care Team Providers Care Knotter Hand Name Role Phone Ruthann Landaverde MD Primary [...] sprays into each nostril daily 1 Inhaler 11 0 Active fluticasone propionate (FLOVENT HFA) 220 [...] Flonase. Assessment & Plan (08/10/2019 4:01 PM STOREROOM SUPERVISOR): I will repeat her ESR. Obtain methacholine challenge test. Currently she is off the QVAR. If methacholine challenge test is normal she does not need to go back on QVAR. Assessment & Plan (06/29/2019 11:29 AM STOREROOM SUPERVISOR): Chronic cough with differential off reactive airway [...] plan. Assessment & Plan (08/10/2019 4:01 PM STOREROOM SUPERVISOR): Continue with Flonase/Zyrtec and intranasal ipratropium. Assessment & Plan (06/29/2019 11:29 AM STOREROOM SUPERVISOR): Continue with Flonase and Zyrtec. Add intranasal ipratropium. Gastroesophageal reflux disease without esophagi tis 06/29/2019 Assessment & Plan (02/06/2020 11:11 AM CDT): Continue with omeprazole. Assessment & Plan (11/07/2019 4:48 PM CDT): Continue with omeprazole. Assessment & Plan (08/10/2019 4:01 PM STOREROOM SUPERVISOR): Continue with omeprazole. Assessment & Plan (06/29/2019 11:30 AM STOREROOM SUPERVISOR): Continue with omeprazole. Immunizations Immunization Administration Dates Next Due DT 07/10/2004 Influenza, Quadrivalent, Spl it, Preservative Free, Intramuscular 03/21/2019 Influenza, Trivalent, High D ose, Split, Preservative Free, Intramuscular 05/11/2015,05/02/2012 Influenza, Trivalent, IM (MDV) 05/10/2011,2009 Influenza, Unspecified 05/24/2016,05/11/2015 Moderna SARS-CoV-2 Monovalent Vaccination (12+ Y RS) 09/28/2020,08/27/2020 Pneumococcal Conjugate PCV 13 09/12/2019 Pneumococcal Polysaccharide PPV23 05/05/2014 Tdap 07/10/2012,10/07/2011 ZOSTER LIVE 02/26/2015 Surgical History Surgery Date Site/Laterality Comments THYROID SURGERY Medical History Medical History Date Comments Allergic rhinitis 06/29/2019 Chronic cough 06/29/2019 Gastroesophageal reflux disease without esophagi tis 06/29/2019 Family History Medical History Relation Name Comments Cancer Father Heart disease Father Hypertension Father Throat cancer Father Diabetes Mother Hypertension Mother Heart disease Sister Hypertension Sister Stroke Sister Relation Name Status Comments Father Mother Sister Social History Tobacco Use Types Packs/Day Years Used Date Smoking Tobacco: Never Smokeless Tobacco: Never Personal Safety Answer Date Recorded Getting School Help Needed Not on file 09/21 Comments Unknown Sex and Gender Information Value Date Recorded Sex Assigned at Not on file Legal Sex Female 9:59 AM STOREROOM SUPERVISOR Gender Identity Not on file Sexual Orientation Not on file Obstetrics History Last Filed Vital Signs Vital Sign Reading [...] 02/06/2020 9:20 AM CDT Plan of Treatment Health Maintenance Due Date Last Done Comments Depression Screening 1950 Fall Risk Assessment 1950 Hepatitis C Screening 1950 Osteoporosis Screening-Bone Density Scan 1950 Hepatitis B Screening 1967 Well Visit 65+ 2014 Zoster Vaccine (2 of 3) 04/23/2015 02/26/2015 DTaP/Tdap/Td Vaccine (4 - Td or Tdap) 07/10/2022 07/10/2012, 10/07/2011, 07/10/2004 Covid-19 Vaccine (3 - 2023-2 5 season) 2024 09/28/2020, 08/27/2020 Influenza Vaccine (#1) 2024 9, 05/24/2016, 05/11/2015, Additional history exists Colon Cancer Screening-Colonoscopy 04/15/2025 04/15/2015 Colon Cancer Screening-CT Colonography Discontinued 04/15/2015 Colon Cancer Screening-DNA Stool Discontinued 04/15/20 Colon Cancer Screening-FIT Discontinued 04/15/2015 Colon Cancer Screening-Sigmoidoscopy Discontinued 04/15/2015 Pneumococcal vaccine 65+ Completed 020, 06/18/2018, 05/05/2014 Procedures Procedure Name Priority Date/Time Associated Diagnosis [...] Health Maintenance Insurance MEDICARE SOLUTIONS Care Teams Knotter Hand Relationship Specialty Start Date End Date Ruthann Landaverde MD PCP - General Family Practice 02/11/21
--- OUTSIDE RECORDS SUMMARY | 2024-09-18 08:40 | XMS_ITS | Clinical Summary ---
Author Organization [facility] Address [address] [place] [address] Care Team Providers Care Supervisor Scrap Preparation Name Role Phone Unavailable Primary Care Provider Unavailabl e Source Comments [facility],non-owned Affiliates and Associated Physician Practices is amultiple site organization consisting of ambulatory clinics and hospital sitesin [place], [place], [place] and [place]. This disclosure is being madepursuant to the Care Everywhere program and may not contain all information available regarding this patient. Last updated 18.[facility] Allergies Active Allergy Reactions Criticality Noted Date Comments Calcium 01/29/2013 Thiazide-Type Diuretics 01/29/2013 Medications * Be aware that medications may not be up to date on this document. Alwaysverify current medications with the patient. Medication Sig Dispensed Refills Start Date End Date Status ZYRTEC PO Take by mouth as needed Active aspirin 81 MG tablet Take 81 mg by mouth once daily. Active risedronate (ATELVIA) 35 MG tablet Take 35 mg by mouth every 7 days. Active probenecid (BENEMID) 500 MG tablet TAKE ONE TABLET BY MOUTH IN THE MORNING 90 Tab 07/26/2016 Active amLODIPine (NORVASC) 10 MG tablet TAKE ONE TABLET BY MOUTH ONCE DAILY 90 Tab 07/26/2016 Active colchicine 0.6 MG tablet TAKE ONE TABLET BY MOUTH TWICE DAILY 180 Tab 07/26/2016 Active quinapril (ACCUPRIL) 20 MG tablet TAKE ONE TABLET BY MOUTH TWICE DAILY 180 Tab 07/26/2016 Active Active Problems Problem Noted Date Diagnosed Date Dyslipidemia 10/26/2015 Primary gout 05/11/2015 Essential hypertension 01/26/2015 Gout, chronic 01/26/2015 BMI 32.0-32.9,adult 05/05/2014 Obesity 06/19/2013 Osteoporosis 06/19/2013 Hyperparathyroidism 01/29/2013 Prediabetes 10/09/2011 Gout 04/22/2009 Hyperlipidemia Overview (09/29/2014): Diet, refuses meds Screening for condition Overview (04/09/2015): Colonoscopy 2003 Dexa obgyn Rectal obgyn Mammogram obgyn Breast exam obgyn Ekg 03/2006 Cxr 03/2006 Stress 2008 Echo 2008 Cardiac w/u 2008 negative Specialist Obgyn Opth cardioologist Resolved Problems Problem Noted Date Diagnosed Date Resolved Date Other abnormal glucose 10/12/201105/05 Overweight 04/12/2010 05/05/2014 Overview (05/17/2015): HTN (hypertension) 5 Immunizations Name Administration Dates Next Due INFLUENZA VACCINE, TRIV. (AF LURIA, FLUZONE TRIVALENT; 6MO+) (IIV3) 05/10/2011,04/12/2010 DT 07/10/2004 DT (AGE 7-ADULT) 10/07/2011 INFLUENZA VACCINE 05/24/2016 INFLUENZA VACCINE, HIGH-DOSE , QUADR. (FLUZONE HIGH-DOSE QUADRIVALENT; 65Y+), 0.7 ML (HD-IIV4) 05/11/2015 Influenza Pf Intradermal (ADULT) 05/02/2012 PNEUMOCOCCAL PPSV23 05/05/2014 ZOSTER VACCINE, LIVE 02/26/2015 Social History Tobacco Use Types Packs/Day Years Used Date Smoking Tobacco: Never Smokeless Tobacco: Never Tobacco Cessation:Counseling Given: No Alcohol Use Standard Drinks/Week Comments No 0 (1 standard drink = 0.6 oz pur e alcohol) Sex and Gender Information Value Date Recorded Sex Assigned at Not on file Gender Identity Not on file Sexual Orientation Not on file Last Filed Vital Signs Vital Sign Reading Time Taken Comments Blood Pressure 146/93 10/26/2015 10:59 AM CDT Pulse 78 10/26/2015 10:59 AM CDT Temperature 37.1 C (98.8 F) 10/26/2015 10:59 AM CDT Respiratory Rate - - Oxygen Saturation 97% 10/26/2015 10:59 AM CDT Inhaled Oxygen Concentration - - Weight 88.5 kg (195 lb) 10/26/2015 10:59 AM CDT Height 163.8 cm (5' 4.5 ) 10/26/2015 10:59 AM CD T Body Mass Index 32.95 10/26/2015 10:59 AM CDT Plan of Treatment Health Maintenance Due Date Last Done Comments COLOGUARD (AGES 45-75) - COLON CA SCREENING 1950 CT COLONOGRAPHY - COLON CA SCREENING 1950 FIT - COLON CA SCREENING 1950 FLEX SIG - COLON CA SCREENING 1950 ZOSTER VACCINE (2 of 3) 04/23/2015 02/26/2015 PNEUMOCOCCAL VACCINE 50+ (2 of 2 - PCV) 05/05/2015 05/05/2014 MAMMOGRAM 06/27/2017 06/27/2015, 04/10, 05/05/2014, Additional history exists LIPID TESTING 10/25/2020 10/26/2015, 04/10, 11/05/2012, Additional history exists DTAP/TDAP/TD VACCINES (3 - Tdap) 10/06/2021 10/07/2011, 07/10/2004 COVID-19 VACCINE (1 - 2023- season) 2024 INFLUENZA VACCINE (#1) 2024 6, 05/11/2015, 05/02/2012, Additional history exists Respiratory Syncytial Virus (RSV) Vaccine Pt: or over 60 yrs (1 - 1-dose 75+ series) 2024 DEPRESSION SCREENING 07/10/2024 MEDICARE AWV CALENDAR YEAR 2024 COLON MONITORING 04/15/2025 04/15/2015 COLONOSCOPY - COLON CA SCREENING 04/15/2025 04/15/2015, 07/10/2003 Colorectal Cancer Screening 04/15/2025 BONE DENSITY TESTING Addressed 04/09/2013 (Previously completed), 01/02/2013 Overridden with the intention of not completing the topic HEPATITIS C SCREENING Completed 06/19/2013, 013 HEPATITIS B VACCINE Aged Out No longe r eligible based on patient's age to complete this topic HIB VACCINE Aged Out No longer eligi ble based on patient's age to complete this topic HPV VACCINE Aged Out No longer eligi ble based on patient's age to complete this topic MENINGOCOCCAL (Group B) VACCINE SHARED DECISION-MAKING Aged Out No longer eligible based on patient's age to complete this topic MENINGOCOCCAL GROUPS A/C/Y/W VACCINE Aged Out No longer eligible based on patient's age to complete this topic Goals Goal Patient Goal Type Associated Problems Recent Progress Patient-Stated? Author Blood Pressure < 140/90 Blood Pressure 146/93( 016 10:59 AM CDT) No Miladys Gardner Procedures Procedure Name Priority Date/Time Associated Diagnosis Comments LIPID PROFILE Routine 10/26/2015 11:27 AM CDT Prediabetes MAMMOGRAPHY ORDER Routine 06/27/2015 ENDOSCOPY, COLON, SCREENING Routine 04/15/2015 HEPATITIS C ANTIBODY Routine 06/19/2013 9:32 AM RACEBOOK WRITER Need for hepatitis C screening test DEXA BONE DENSITY 2 SITES Routine 01/02/2013 from Last 3 Months or Most Recently Relevant to Health Maintenance Results * (ABNORMAL) LIPID PROFILE (10/26/2015 11:27 AM CDT) Cholesterol 187 100 - 199 mg/dL [facility] ACCOUNT BILL Triglycerides 232(H) 0 - 149 mg/dL [facility] ACCOUNT BILL HDL Cholesterol 37(L) >39 mg/dL [facility] ACCOUNT BILL Comment: According to ATP-III Guidelines, HDL-C >59 mg/dL is considered a negative risk factor for CHD. VLDL Calculated 46(H) 5 - 40 mg/dL [facility] ACCOUNT BILL LDL Calculated 104(H) 0 - 99 mg/dL [facility] ACCOUNT BILL Comment NOT NEEDED [facility] ACCOUNT BILL Comment:Ancillary determined the test is not needed Blood specimen (specimen) BLOOD SPECIMEN / Unknown 10/26/2015 11:27 AM CDT 10/26/2015 9:25 PM CDT Narrative Resulting Agency Comment [facility] [address] [phone] Iris Ruano MD LAB - CHEMISTRY EAMON LOPEZ [facility] ACCOUNT BILL * MAMMOGRAPHY ORDER (06/27/2015) Anatomical Region Laterality Modality Other Iris Ruano MD MAMMO ORDERABLES * ENDOSCOPY, COLON, SCREENING (04/15/2015) Provider Unknown GI PROCEDURE ORDERAB LES * HEPATITIS C ANTIBODY (06/19/2013 9:32 AM RACEBOOK WRITER) Hepatitis C Antibody <0.1 0.0 - 0.9 s/co ratio [facility] INSURANCE BILL Comment: Negative: < 0.8 Indeterminate 0.8 - 0.9 Positive: > 0.9 . In order to reduce the incidence of a false positive result, the CDC recommends that all s/co ratios between 1.0 and 10.9 be confirmed by a more specific supplemental or PCR testing. [facility] offers HCV Ab w/Reflex to Verification test #[id number]. Blood specimen (specimen) BLOOD SPECIMEN / Unknown 06/19/2013 9:32 AM RACEBOOK WRITER 06/19/2013 8:43 PM RACEBOOK WRITER Narrative Resulting Agency Comment [address] [phone] Iris Ruano MD LAB - CHEMISTRY EAMON LOPEZ [facility] Organization Address City/State/ZIP Co de Phone Number [facility] INSURANCE BILL * DEXA BONE DENSITY 2 SITES (01/02/2013) Anatomical Region Laterality Modality Other Roland Le MD DEXA ORDERABLES from Last 3 Months or Most Recently Relevant [place] [address] CHRIS ARANDA Personal/Famil y [address] [place] [address] [place] [address]
--- OUTSIDE RECORDS SUMMARY | 2024-09-18 08:40 | XMS_ITS | Referral Summary ---
Author Organization [facility] Address [address] [place] [address] Care Team Providers Care Personal Driver Name Role Phone Unavailable Primary Care Provider Unavailabl e Source Comments [facility],non-owned Affiliates and Associated Physician Practices is amultiple site organization consisting of ambulatory clinics and hospital sitesin [place], [place], [place] and [place]. This disclosure is being madepursuant to the Care Everywhere program and may not contain all information available regarding this patient. Last updated 18.[facility] [place] Allergies Active Allergy Reactions Criticality Noted Date [...] 10/26/2015 10:59 AM CDT Plan of Treatment Not on file Goals Goal Patient Goal Type Associated Problems Recent Progress Patient-Stated? Author Blood Pressure < 140/90 Blood Pressure 146/93( 016 10:59 AM CDT) Miladys Smith Procedures Procedure Name Priority Date/Time Associated Diagnosis Comments LIPID PROFILE Routine 10/26/2015 11:27 AM CDT Prediabetes MAMMOGRAPHY ORDER Routine 06/27/2015 ENDOSCOPY, COLON, SCREENING Routine 04/15/2015 HEPATITIS C ANTIBODY Routine 06/19/2013 9:32 AM PAIN MANAGEMENT PHYSICIAN Need for hepatitis C screening test DEXA [...] PM CDT Narrative Resulting Agency Comment [facility] [address] [phone] Iris Ruano MD LAB - CHEMISTRY EAMON LOPEZ [facility] ACCOUNT BILL * MAMMOGRAPHY ORDER (06/27/2015) Anatomical Region Laterality Modality Other Iris Ruano MD MAMMO ORDERABLES * ENDOSCOPY, COLON, SCREENING (04/15/2015) Provider Unknown GI PROCEDURE ORDERAB LES * HEPATITIS C ANTIBODY (06/19/2013 9:32 AM PAIN MANAGEMENT PHYSICIAN) Hepatitis C Antibody <0.1 0.0 - 0.9 s/co ratio [facility] INSURANCE BILL Comment: Negative: < 0.8 Indeterminate 0.8 - 0.9 Positive: > 0.9 . In order to reduce the incidence of a false positive result, the CDC recommends that all s/co ratios between 1.0 and 10.9 be confirmed by a more specific supplemental or PCR testing. [facility] offers HCV Ab w/Reflex to Verification test #[id number]. Blood specimen (specimen) BLOOD SPECIMEN / Unknown 06/19/2013 9:32 AM PAIN MANAGEMENT PHYSICIAN 06/19/2013 8:43 PM PAIN MANAGEMENT PHYSICIAN Narrative Resulting Agency Comment [place] [id number] [facility] [phone] Iris Ruano MD LAB - CHEMISTRY EAMON [facility] Organization Address City/State/ZIP Co de Phone Number [facility] INSURANCE BILL * DEXA BONE DENSITY 2 SITES (01/02/2013) Anatomical Region Laterality Modality Other Roland Le MD DEXA ORDERABLES from Last 3 Months or Most Recently [place] [address] CHRIS ARANDA Personal/Famil y [address] [place] [address] [place] [address]
--- OUTSIDE RECORDS SUMMARY | 2024-09-18 08:40 | XMS_ITS | Patient Health Summary ---
Author Organization [facility] [employer] Address [address] [place] [address] Care Team Providers Care Transistor Tester Name Role Phone Unavailable Primary Care Provider Unavailabl e Note from [facility] [employer] [facility],non-owned Affiliates and Associated Physician Practices is amultiple site organization consisting of ambulatory clinics and hospital sitesin [place], [place], [place] and [place]. This disclosure is being madepursuant to the Care Everywhere program and may not contain all information available regarding this patient. Last updated 18.[facility] [employer] Allergies * Calcium * Thiazide-Type Diuretics Medications * Be aware that medications may not be up to date on this document. Alwaysverify current medications with the patient. * ZYRTEC PO Take by mouth as needed * aspirin 81 MG tablet Take 81 mg by mouth once daily. * risedronate (ATELVIA) 35 MG tablet Take 35 mg by mouth every 7 days. * probenecid (BENEMID) 500 MG tablet(Started 07/26/2016) TAKE ONE TABLET BY MOUTH IN THE MORNING * amLODIPine (NORVASC) 10 MG tablet(Started 07/26/2016) TAKE ONE TABLET BY MOUTH ONCE DAILY * colchicine 0.6 MG tablet(Started 07/26/2016) TAKE ONE TABLET BY MOUTH TWICE DAILY * quinapril (ACCUPRIL) 20 MG tablet(Started 07/26/2016) TAKE ONE TABLET BY MOUTH TWICE DAILY Active Problems Problem Noted Date Diagnosed Date Dyslipidemia 10/26/2015 Primary gout 05/11/2015 Essential hypertension 01/26/2015 Gout, chronic 01/26/2015 BMI 32.0-32.9,adult 05/05/2014 Obesity 06/19/2013 Osteoporosis 06/19/2013 Hyperparathyroidism 01/29/2013 Prediabetes 10/09/2011 Gout 04/22/2009 Hyperlipidemia Screening for condition Resolved Problems Problem Noted Date Diagnosed Date Resolved Date Other abnormal glucose 10/12/201105/05 Overweight 04/12/2010 05/05/2014 HTN (hypertension) 5 Immunizations * INFLUENZA VACCINE, TRIV. (AFLURIA, FLUZONE TRIVALENT; 6MO+) (IIV3)(Given 05/10/2011, 04/12/2010) * DT(Given 07/10/2004) * DT (AGE 7-ADULT)(Given 10/07/2011) * INFLUENZA VACCINE(Given 05/24/2016) * INFLUENZA VACCINE, HIGH-DOSE, QUADR. (FLUZONE HIGH-DOSE QUADRIVALENT; 65Y+), 0.7 ML (HD-IIV4)(Given 05/11/2015) * Influenza Pf Intradermal (ADULT)(Given 05/02/2012) * PNEUMOCOCCAL PPSV23(Given 05/05/2014) * ZOSTER VACCINE, LIVE(Given 02/26/2015) Social History Tobacco Use Types Packs/Day Years [...] Mass Index 32.95 10/26/2015 10:59 AM CDT Procedures * DERMATOPATHOLOGY(Performed 06/19/2023) * DERMATOPATHOLOGY(Performed 10/06/2020) * DERMATOPATHOLOGY(Performed 01/29/2019) * DERMATOPATHOLOGY(Performed 06/08/2017) * URIC ACID BLOOD(Performed 10/26/2015) Performed for Idiopathic gout, unspecified chronicity, unspecified site * LIPID PROFILE(Performed 10/26/2015) Performed for Prediabetes * VITAMIN D 25-HYDROXY(Performed 10/26/2015) Performed for Osteoporosis * TSH(Performed 10/26/2015) Performed for Osteoporosis * URINALYSIS NO MICROSCOPIC NO CULTURE(Performed 10/26/2015) Performed for Essential hypertension with goal blood pressure less than 140/90 * COMPREHENSIVE METABOLIC PANEL(Performed 10/26/2015) Performed for Essential hypertension with goal blood pressure less than 140/90 * CBC W AUTO DIFFERENTIAL(Performed 10/26/2015) Performed for Essential hypertension with goal blood pressure less than 140/90 * HEMOGLOBIN A1C - POINT OF CARE (AMB)(Performed 10/26/2015) Performed for Prediabetes * MAMMOGRAPHY ORDER(Performed 06/27/2015) * EKG 12-LEAD(Performed 05/11/2015) Performed for Essential hypertension, Hyperparathyroidism (HCC) * PATHOLOGY/CYTOLOGY REPORT ORDER(Performed 04/16/2015) * ENDOSCOPY, COLON, SCREENING(Performed 04/15/2015) * BASIC METABOLIC PANEL (CALCIUM TOTAL)(Performed 01/26/2015) Performed for Prediabetes * HEMOGLOBIN A1C - POINT OF CARE (AMB)(Performed 01/26/2015) Performed for Prediabetes, Hyperparathyroidism (HCC) * COMPREHENSIVE METABOLIC PANEL(Performed 09/29/2014) Performed for Hyperparathyroidism (HCC) * HEMOGLOBIN A1C - POINT OF CARE (AMB)(Performed 09/29/2014) Performed for Prediabetes * VITAMIN D 25-HYDROXY(Performed 05/05/2014) Performed for Osteoporosis * URIC ACID BLOOD(Performed 05/05/2014) Performed for Gout * TSH(Performed 05/05/2014) Performed for HTN (hypertension) * URINALYSIS NO MICROSCOPIC NO CULTURE(Performed 05/05/2014) Performed for HTN (hypertension) * LIPID PROFILE W LDL/HDL RATIO(Performed 05/05/2014) Performed for HTN (hypertension) * COMPREHENSIVE METABOLIC PANEL(Performed 05/05/2014) Performed for HTN (hypertension) * CBC W AUTO DIFFERENTIAL(Performed 05/05/2014) Performed for HTN (hypertension) * HEMOGLOBIN A1C - POINT OF CARE (AMB)(Performed 05/05/2014) Performed for Prediabetes * MAMMOGRAPHY ORDER(Performed 05/05/2014) * HEMOGLOBIN A1C - POINT OF CARE (AMB)(Performed 10/02/2013) Performed for Prediabetes * CBC W AUTO DIFFERENTIAL(Performed 06/19/2013) Performed for HTN (hypertension) * HEPATITIS C ANTIBODY(Performed 06/19/2013) Performed for Need for hepatitis C screening test * COMPREHENSIVE METABOLIC PANEL(Performed 06/19/2013) Performed for Hyperparathyroidism (HCC) * EKG 12-LEAD(Performed 06/19/2013) Performed for HTN (hypertension), PVC (premature ventricular contraction) * HEMOGLOBIN A1C - POINT OF CARE (AMB)(Performed 06/19/2013) Performed for Prediabetes * URIC ACID BLOOD(Performed 02/18/2013) Performed for Gout * URINALYSIS NO MICROSCOPIC NO CULTURE(Performed 02/18/2013) Performed for HTN (hypertension) * COMPREHENSIVE METABOLIC PANEL(Performed 02/18/2013) Performed for HTN (hypertension) * CALCIUM URINE TIMED(Performed 01/14/2013) Performed for Serum calcium elevated * CREATININE URINE TIMED(Performed 01/07/2013) Performed for Serum calcium elevated * DEXA BONE DENSITY 2 SITES(Performed 01/02/2013) * PTH INTACT+CALCIUM(Performed 11/07/2012) * URINALYSIS MICROSCOPIC ONLY REFLEXED(Performed 11/05/2012) Performed for Gout * URIC ACID BLOOD(Performed 11/05/2012) Performed for Gout * HEMOGLOBIN A1C(Performed 11/05/2012) Performed for Prediabetes * TSH(Performed 11/05/2012) Performed for Hyperlipidemia * URINALYSIS NO MICROSCOPIC NO CULTURE(Performed 11/05/2012) Performed for Gout * LIPID PROFILE W LDL/HDL RATIO(Performed 11/05/2012) Performed for Hyperlipidemia * COMPREHENSIVE METABOLIC PANEL(Performed 11/05/2012) Performed for Hyperlipidemia * URINALYSIS MICROSCOPIC ONLY REFLEXED(Performed 05/02/2012) Performed for Hyperlipidemia * HEMOGLOBIN A1C(Performed 05/02/2012) Performed for Prediabetes * URIC ACID BLOOD(Performed 05/02/2012) Performed for Gout * URINALYSIS NO MICROSCOPIC NO CULTURE(Performed 05/02/2012) Performed for Hyperlipidemia * LIPID PROFILE W LDL/HDL RATIO(Performed 05/02/2012) Performed for Hyperlipidemia * COMPREHENSIVE METABOLIC PANEL(Performed 05/02/2012) Performed for Hyperlipidemia * CBC W AUTO DIFFERENTIAL(Performed 05/02/2012) Performed for HTN (hypertension) * HEMOGLOBIN A1C(Performed 10/07/2011) Performed for Hyperlipidemia, Overweight * TSH(Performed 10/07/2011) Performed for Hyperlipidemia, Overweight * URINE MICROSCOPIC ONLY(Performed 05/10/2011) Performed for HTN (hypertension) * URIC ACID BLOOD(Performed 05/10/2011) Performed for Gout * URINALYSIS REFLEX TO MICROSCOPIC NO CULTURE(Performed 05/10/2011) Performed for HTN (hypertension) * CBC W AUTO DIFFERENTIAL(Performed 05/10/2011) Performed for HTN (hypertension) * LIPID PROFILE(Performed 05/10/2011) Performed for Hyperlipidemia * COMPREHENSIVE METABOLIC PANEL(Performed 05/10/2011) Performed for Hyperlipidemia * DERMATOPATHOLOGY(Performed 11/30/2010) * URIC ACID BLOOD(Performed 08/09/2010) Performed for Gout * TSH(Performed 08/09/2010) Performed for Hyperlipidemia * LIPID PROFILE W LDL/HDL RATIO(Performed 08/09/2010) Performed for Hyperlipidemia * COMPREHENSIVE METABOLIC PANEL(Performed 08/09/2010) Performed for Hyperlipidemia * URINALYSIS DIPSTICK(Performed 04/12/2010) Performed for HTN (hypertension), Gout, Hyperlipidemia, Preventative health care * URIC ACID BLOOD(Performed 04/12/2010) Performed for HTN (hypertension), Gout, Hyperlipidemia, Preventative health care * CBC W/O DIFFERENTIAL(Performed 04/12/2010) Performed for HTN (hypertension), Gout, Hyperlipidemia, Preventative health care * BASIC METABOLIC PANEL (CALCIUM TOTAL)(Performed 04/12/2010) Performed for HTN (hypertension), Gout, Hyperlipidemia, Preventative health care * URINE MICROSCOPIC ONLY(Performed 11/09/2009) Performed for Gout, Hyperlipidemia * URINALYSIS NO MICROSCOPIC NO CULTURE(Performed 11/09/2009) Performed for Gout, Hyperlipidemia * TSH(Performed 11/09/2009) Performed for Gout, Hyperlipidemia * URIC ACID BLOOD(Performed 11/09/2009) Performed for Gout * LIPID PROFILE W LDL/HDL RATIO(Performed 11/09/2009) Performed for Hyperlipidemia * COMPREHENSIVE METABOLIC PANEL(Performed 11/09/2009) Performed for Gout, Hyperlipidemia * IMAGING/RADIOLOGY/XRAY RESULTS ORDER(Performed 06/01/2009) * IMAGING/RADIOLOGY/XRAY RESULTS ORDER(Performed 05/21/2009) * URIC ACID BLOOD(Performed 02/16/2009) * BASIC METABOLIC PANEL (CALCIUM TOTAL)(Performed 02/16/2009) * CBC W AUTO DIFFERENTIAL(Performed 02/16/2009) * URIC ACID BLOOD(Performed 11/17/2008) * VITAMIN D 25-HYDROXY(Performed 11/17/2008) * LIPID PROFILE(Performed 11/17/2008) * COMPREHENSIVE METABOLIC PANEL(Performed 11/17/2008) * URIC ACID BLOOD(Performed 08/04/2008) * VITAMIN D 25-HYDROXY(Performed 08/04/2008) * TSH(Performed 08/04/2008) * LIPID PROFILE(Performed 08/04/2008) * URINALYSIS NO MICROSCOPIC NO CULTURE(Performed 08/04/2008) * COMPREHENSIVE METABOLIC PANEL(Performed 08/04/2008) * CARDIAC EKG ORDER(Performed 12/11/2007) Results * DERMATOPATHOLOGY (06/19/2023 1:23 PM [facility]ER[facility]) Only the most recent of5 resultswithin the time period is included. Case Report Dermatopathology Report Case: [id number] Authorizing Provider: Lisa Shore MD Collected: 06/19/2023 01:23 PM Ordering Location: [facility] Received: 06/20/2023 11:36 AM Pathologist: Jayne Conte MD Specimens: A) - Skin, left garcia B) - Skin, left back 1:14 PM [facility] Final Diagnosis Specimen A. 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 Jar 0. 1:14 PM [facility] Microscopic Description Specimen A. SKIN, left garcia: The epidermis is focally necrotic and covered with a subcorneal pustule and inflamed serum scale-crust containing bacteria. There is fibrin at the base. Specimen B. SKIN, left back: The epidermis is focally necrotic and covered with a scale-crust. There is fibrin at the base. 3 1:14 PM [facility]ERMATOPATHOLOG[facility] Disclaimer An external and internal positive and negative controls are appropriate for the histochemical, immunohistochemical and immunofluorescence stain(s) in this case (if any), except where stated explicitly. The performance characteristics of the stain(s) cited in this report were developed and its performance characteristic determined by the Dermatopathology Laboratory at [facility], directed by Dr. Wilmer Turner. These tests need not be, and therefore are not, approved by the [place] Food and Drug Administration. The tests are used for clinical purposes. Billing Codes Specimen Charges Stain Charges 26809 07942 1 1 3 1:14 PM [facility] DERMATOPATHOLOGY LABORATORY Embedded Images 3 1:14 PM [facility] DERMATOPATHOLOGY LABORATORY Pathology/Cytology TISSUE SPECIMEN FROM SKIN / Unknown 06/19/2023 1:23 PM [facility] 06/20/2023 11:36 AM [facility] Miscellaneous samples (specimen) TISSUE SPECIMEN FROM SKIN / Unknown 06/19/2023 1:23 PM [facility] 06/20/2023 11:36 AM [facility] Lisa Shore MD LAB - PATHOLOGY/CYTO LOGY ORDERABLES DERMATOPATHOLOGY LABORATORY [facility] Department of Dermatology [address] [phone] * URIC ACID BLOOD (10/26/2015 11:27 AM CDT) Only the most recent of12 resultswithin the time period is included. Uric Acid 5.7 2.5 - 7.1 mg/dL [facility] ACCOUNT BILL Comment:Therapeutic target f or gout patients: <6.0 Blood specimen (specimen) BLOOD SPECIMEN / Unknown 10/26/2015 11:27 AM CDT 10/26/2015 9:25 PM CDT Narrative Resulting Agency Comment [facility] [address] [id number] Iris Ruano MD LAB - CHEMISTRY EAMON LOPEZ [facility] ACCOUNT BILL * URINALYSIS DIPSTICK AUTO (10/26/2015 11:27 AM CDT) Only the most recent of7 resultswithin the time period is included. Specific [place] UA 1.013 1.005 - 1.030 [facility] ACCOUNT BILL pH UA 6.0 5.0 - 7.5 [facility] ACCOUNT BILL Color UA Yellow Yellow [facility] ACCOUNT BILL Appearance Clear Clear [facility] ACCOUNT BILL Leukocyte UA Negative Negative [facility] ACCOUNT BILL Protein UA Negative Negative/Tra ce [facility] ACCOUNT BILL Glucose UA Negative Negative [facility] ACCOUNT BILL Glucose Reflex NOT NEEDED [facility] ACCOUNT BILL Comment:Ancillary determined the test is not needed Ketone UA Negative Negative [facility] ACCOUNT BILL Occult Blood Urine Negative Negative [facility] ACCOUNT BILL Bilirubin UA Negative Negative [facility] ACCOUNT BILL Urobilinogen 0.2 0.2 - 1.0 mg/dL [facility] ACCOUNT BILL Nitrite UA Negative Negative [facility] ACCOUNT BILL Urine specimen (specimen) URINE / Unknown 10/26/2015 11:27 AM CDT 10/26/2015 9:25 PM CDT Narrative Resulting Agency Comment [facility] [address] [phone] Iris Ruano MD LAB - URINALYSIS ORD TERRI [facility] ACCOUNT BILL * VITAMIN D 25-HYDROXY (10/26/2015 11:27 AM CDT) Only the most recent of4 resultswithin the time period is included. Vitamin D, 25 Hydroxy 41.5 30.0 - 100.0 ng/mL [facility] ACCOUNT BILL Comment: Vitamin D deficiency has been defined by the [place] of [employer] and an Endocrine Society practice guideline as a level of serum 25-OH vitamin D less than 20 ng/mL (1,2). The Endocrine Society went on to further define vitamin D insufficiency as a level between 21 and 29 ng/mL (2). 1. IOM ([place] of [employer]). 2010. Dietary reference intakes for calcium and D. [place]: The National Academies Press. 2. Ana MIGUEL, Eric RODRIGUEZ, Dorothy MOREAU, et al. Evaluation, treatment, and prevention of vitamin D deficiency: an Endocrine Society clinical practice guideline. JCEM. 2010; 96(7):1911-30. Blood specimen (specimen) BLOOD SPECIMEN / Unknown 10/26/2015 11:27 AM CDT 10/26/2015 9:25 PM CDT Narrative Resulting Agency Comment [facility] [address] [phone] Iris Ruano MD LAB - CHEMISTRY EAMON LOPEZ [facility] ACCOUNT BILL * (ABNORMAL) CBC W AUTO DIFFERENTIAL (10/26/2015 11:27 AM CDT) Only the most recent of6 resultswithin the time period is included. WBC 10.9(H) 3.4 - 10.8 x10E3/uL [facility] ACCOUNT BILL RBC 4.43 3.77 - 5.28 x10E6/uL [facility] ACCOUNT BILL Hemoglobin 12.6 11.1 - 15.9 g/dL [facility] ACCOUNT BILL Hematocrit 39.2 34.0 - 46.6 % [facility] ACCOUNT BILL MCV 89 79 - 97 fL [facility] ACCOUNT BILL MCH 28.4 26.6 - 33.0 pg [facility] ACCOUNT BILL MCHC 32.1 31.5 - 35.7 g/dL [facility] ACCOUNT BILL RDW 15.0 12.3 - 15.4 % [facility] ACCOUNT BILL Platelet Count 297 150 - 379 x10E3/uL [facility] ACCOUNT BILL Granulocytes % 47 % [facility] ACCOUNT BILL Lymphocytes % 41 % [facility] ACCOUNT BILL Monocytes % 9 % [facility] ACCOUNT BILL Eosinophils % 3 % [facility] ACCOUNT BILL Basophils % 0 % [facility] ACCOUNT BILL Immature Cells NOT NEEDED [facility] ACCOUNT BILL Comment:Ancillary determined the test is not needed Granulocytes Absolute 5.1 1.4 - 7.0 x10E3/uL [facility] ACCOUNT BILL Lymphocytes Absolute 4.4(H) 0.7 - 3.1 x10E3/uL [facility] ACCOUNT BILL Monocytes Absolute 1.0(H) 0.1 - 0.9 x10E3/uL [facility] ACCOUNT BILL Eosinophils Absolute 0.3 0.0 - 0.4 x10E3/uL [facility] ACCOUNT BILL Basophils Absolute 0.0 0.0 - 0.2 x10E3/uL [facility] ACCOUNT BILL Immature Granulocytes 0 % [facility] ACCOUNT BILL Immature Granulocytes Absolute 0.0 0.0 - 0.1 x10E3/uL [facility] ACCOUNT BILL nRBC NOT NEEDED [facility] ACCOUNT BILL Comment:Ancillary determined the test is not needed Comment Hematology Note: [facility] ACCOUNT BILL Comment:Verified by microsco pic examination. Blood specimen (specimen) BLOOD SPECIMEN / Unknown 10/26/2015 11:27 AM CDT 10/26/2015 9:25 PM CDT Narrative Resulting Agency Comment [facility] [address] [phone] Iris Ruano MD LAB - HEMATOLOGY ORD ERABLES [facility] ACCOUNT BILL * (ABNORMAL) COMPREHENSIVE METABOLIC PANEL (10/26/2015 11:27 AM CDT) Only the most recent of12 resultswithin the time period is included. Glucose 76 65 - 99 mg/dL [facility] ACCOUNT BILL BUN 11 8 - 27 mg/dL [facility] ACCOUNT BILL Creatinine 0.62 0.57 - 1.00 mg/dL [facility] ACCOUNT BILL eGFR by MDRD 94 >59 mL/min/1.7 3 [facility] ACCOUNT BILL eGFR by MDRD 109 >59 mL/min/1.7 3 [facility] ACCOUNT BILL BUN/Creatinine Ratio 18 11 - 26 [facility] ACCOUNT BILL Sodium 142 134 - 144 mmol/L [facility] ACCOUNT BILL Potassium 4.2 3.5 - 5.2 mmol/L [facility] ACCOUNT BILL Chloride 106 97 - 108 mmol/L [facility] ACCOUNT BILL CO2 21 18 - 29 mmol/L [facility] ACCOUNT BILL Calcium 10.4(H) 8.7 - 10.3 mg/dL [facility] ACCOUNT BILL Protein Total 7.4 6.0 - 8.5 g/dL [facility] ACCOUNT BILL Albumin 4.4 3.6 - 4.8 g/dL [facility] ACCOUNT BILL Globulin Total 3.0 1.5 - 4.5 g/dL [facility] ACCOUNT BILL Albumin/Globulin Ratio 1.5 1.1 - 2.5 [facility] ACCOUNT BILL Bilirubin Total 0.2 0.0 - 1.2 mg/dL [facility] ACCOUNT BILL Alkaline Phosphatase 111 39 - 117 IU/L [facility] ACCOUNT BILL AST 47(H) 0 - 40 IU/L [facility] ACCOUNT BILL ALT 48(H) 0 - 32 IU/L [facility] ACCOUNT BILL Blood specimen (specimen) BLOOD SPECIMEN / Unknown 10/26/2015 11:27 AM CDT 10/26/2015 9:25 PM CDT Narrative Resulting Agency Comment [facility] [phone] Iris Ruano MD LAB - CHEMISTRY EAMON LOPEZ Performing Organization Address City/[facility] Co de Phone Number [facility] ACCOUNT BILL * TSH (10/26/2015 11:27 AM CDT) Only the most recent of7 resultswithin the time period is included. TSH 1.560 0.450 - 4.500 uIU/mL [facility] ACCOUNT BILL Blood specimen (specimen) BLOOD SPECIMEN / Unknown 10/26/2015 11:27 AM CDT 10/26/2015 9:25 PM CDT Narrative Resulting Agency Comment [facility] [phone] Iris Ruano MD LAB - CHEMISTRY EAMON LOPEZ Performing Organization Address [facility] Co de Phone Number [facility] ACCOUNT BILL * (ABNORMAL) LIPID PROFILE (10/26/2015 11:27 AM CDT) Only the most recent of4 resultswithin the time period is included. Cholesterol 187 100 - 199 mg/dL [facility] [...] PM CDT Narrative Resulting Agency Comment [facility] [address] [phone] Iris Ruano MD LAB - CHEMISTRY EAMON LOPEZ [facility] ACCOUNT BILL * HEMOGLOBIN A1C - POINT OF CARE (AMB) (10/26/2015) Only the most recent of6 resultswithin the time period is included. Hemoglobin A1c POCT 6.3 % QC Verified Yes Yes Blood specimen (specimen) BLOOD SPECIMEN / Unknown 10/26/2015 Iris Ruano MD LAB - POINT OF CARE ORDERABLES * MAMMOGRAPHY ORDER (06/27/2015) Only the most recent of2 resultswithin the time period is included. Anatomical Region Laterality Modality Other Iris Ruano MD MAMMO ORDERABLES * EKG 12-LEAD (05/11/2015) Only the most recent of2 resultswithin the time period is included. Iris Ruano MD ECG ORDERABLES Performing Organization Address City/[facility] Co de Phone Number [facility] RESULT SCAN * PATHOLOGY/CYTOLOGY REPORT ORDER (04/16/2015) Provider Unknown LAB - PATHOLOGY/CYTO LOGY ORDERABLES * ENDOSCOPY, COLON, SCREENING (04/15/2015) Provider Unknown GI PROCEDURE ORDERAB LES * BASIC METABOLIC PANEL (CALCIUM TOTAL) (01/26/2015 9:16 AM CDT) Only the most recent of3 resultswithin the time period is included. Glucose 98 74 - 106 mg/dL [facility] INSURANCE BILL BUN 12 7 - 21 mg/dL [facility] INSURANCE BILL Creatinine 0.72 0.50 - 1.30 mg/dL [facility] INSURANCE BILL eGFR by MDRD >60 >60 mL/min/1.7 3m2 [facility] INSURANCE BILL eGFR by MDRD >60 >60 mL/min/1.7 3m2 [facility] INSURANCE BILL Sodium 137 136 - 145 mmol/L [facility] INSURANCE BILL Potassium 4.3 3.5 - 5.1 mmol/L [facility] INSURANCE BILL Chloride 106 98 - 107 mmol/L [facility] INSURANCE BILL CO2 22 22 - 31 mmol/L [facility] INSURANCE BILL Calcium 9.7 8.5 - 10.1 mg/dL [facility] INSURANCE BILL Blood specimen (specimen) BLOOD SPECIMEN / Unknown 01/26/2015 9:16 AM CDT 01/26/2015 6:40 PM CDT Narrative Resulting Agency Comment [facility] [address] [place] [phone] Iris Ruano MD LAB - CHEMISTRY AEMON LOPEZ [facility] INSURANCE BILL * (ABNORMAL) LIPID PROFILE W LDL/HDL (PO REF LAB) (05/05/2014 9:18 AM CDT) Only the most recent of5 resultswithin the time period is included. Cholesterol 204(H) 100 - 199 mg/dL [facility] INSURANCE BILL Triglycerides 131 0 - 149 mg/dL [facility] INSURANCE BILL HDL Cholesterol 36(L) >39 mg/dL [facility] INSURANCE BILL Comment: According to ATP-III Guidelines, HDL-C >59 mg/dL is considered a negative risk factor for CHD. VLDL Calculated 26 5 - 40 mg/dL [facility] INSURANCE BILL LDL Calculated 142(H) 0 - 99 mg/dL [facility] INSURANCE BILL Comment NOT NEEDED [facility] INSURANCE BILL Comment:Ancillary determined the test is not needed LDL/HDL Ratio 3.9(H) 0.0 - 3.2 ratio units [facility] INSURANCE BILL Comment: LDL/HDL Ratio Men Women 1/2 Avg.Risk 1.0 1.5 Avg.Risk 3.6 3.2 2X Avg.Risk 6.2 5.0 3X Avg.Risk 8.0 6.1 Blood specimen (specimen) BLOOD SPECIMEN / Unknown 05/05/2014 9:18 AM CDT 05/06/2014 3:28 AM CDT Narrative Resulting Agency Comment [facility] [address] [facility] [address] [phone] Iris Ruano MD LAB - CHEMISTRY EAMON LOPEZ Performing Organization Address [facility] Co de Phone Number [facility] * HEPATITIS C ANTIBODY (06/19/2013 9:32 AM [facility] T[facility]BE INSERTER) Hepatitis C Antibody <0.1 0.0 - 0.9 s/co ratio [facility] Comment: Negative: < 0.8 Indeterminate 0.8 - 0.9 Positive: > 0.9 . In order to reduce the incidence of a false positive result, the CDC recommends that all s/co ratios between 1.0 and 10.9 be confirmed by a more specific supplemental or PCR testing. [facility] offers HCV Ab w/Reflex to Verification test #[id number]. Blood specimen (specimen) BLOOD SPECIMEN / Unknown 06/19/2013 9:32 AM [facility]TER 06/19/2013 8:43 PM [facility] Narrative Resulting Agency Comment [facility] [address] [phone] Iris Ruano MD LAB - CHEMISTRY EAMON LOPEZ Performing Organization Address [facility] Co de Phone Number [facility] * CALCIUM URINE TIMED (01/14/2013) Urine specimen (specimen) TIMED URINE SPECIMEN / Unknown Iris Ruano MD LAB - URINE CHEMISTR Y ORDERABLES Performing Organization Address [facility]/ZIP Co de Phone Number [employer] [address] [place] [address] * CREATININE URINE TIMED (01/07/2013) Urine specimen (specimen) TIMED URINE SPECIMEN / Unknown Iris Ruano MD LAB - URINE CHEMISTR Y ORDERABLES Performing Organization Address [facility] Co de Phone Number [facility] [address] [place] [address] * DEXA BONE DENSITY 2 SITES (01/02/2013) Anatomical Region Laterality Modality Other Roland Le MD DEXA ORDERABLES * (ABNORMAL) PTH INTACT PANEL (11/07/2012 2:16 PM CDT) PTH Intact 127(H) 10 - 65 pg/mL [facility] Comment: Interpretive Guide Intact PTH Calcium Normal Parathyroid Normal Normal Hypoparathyroidism Low or Low Normal Low Hyperparathyroidism Primary Normal or High High Secondary High Normal or Low Tertiary High High Non-Parathyroid Hypercalcemia Low or Low Normal High Test Performed at: [facility] [address] [place], [place] [id number] PÉREZ WATTERS DO,MPH Calcium 10.5(H) 8.6 - 10.4 mg/dL [facility] 11/07/2012 2:16 PM CDT 11/07/2012 2:16 PM CDT Iris Ruano MD LAB - CHEMISTRY EAMON LOPEZ [facility] [address] [place] [address] * (ABNORMAL) URINALYSIS MICROSCOPIC ONLY REFLEXED (PO REF LAB) (11/05/2012 9:21 AM CDT) Only the most recent of2 resultswithin the time period is included. WBC UA 6-10(A) 0 - 5 /hpf [facility] INSURANCE BILL RBC UA 0-3 0 - 3 /hpf [facility] INSURANCE BILL Epithelial Cells (non renal) 0-10 0 - 10 /hpf [facility] INSURANCE BILL Epithelial Cells (renal) NOT NEEDED [facility] INSURANCE BILL Comment:Ancillary determined the test is not needed Casts ua NOT NEEDED [facility] INSURANCE BILL Comment:Ancillary determined the test is not needed Casts UA NOT NEEDED [facility] INSURANCE BILL Comment:Ancillary determined the test is not needed Crystals UA Present(A) N/A [facility] INSURANCE BILL Crystals UA Amorphous Sediment N/A [facility] INSURANCE BILL Comment:Calcium Oxalate Mucus UA Present Not Estab. [facility] INSURANCE BILL Bacteria UA Few None seen/Few [facility] INSURANCE BILL Yeast UA NOT NEEDED [facility] INSURANCE BILL Comment:Ancillary determined the test is not needed Trichomonas UA NOT NEEDED [facility] INSURANCE BILL Comment:Ancillary determined the test is not needed Comment Urine NOT NEEDED [facility] INSURANCE BILL Comment:Ancillary determined the test is not needed BLOOD SPECIMEN / Unknown 11/05/2012 9:21 AM CDT 11/05/2012 10:07 PM CDT Narrative Resulting Agency Comment [address] [phone] Iris Ruano MD LAB - URINALYSIS ORD ERABLES [facility] INSURANCE BILL * (ABNORMAL) HEMOGLOBIN A1C (11/05/2012 9:21 AM CDT) Only the most recent of3 resultswithin the time period is included. Hemoglobin A1c 6.1(H) 4.8 - 5.6 % [facility] INSURANCE BILL Comment: . Increased risk for diabetes: 5.7 - 6.4 Diabetes: >6.4 Glycemic control for adults with diabetes: <7.0 Whole blood specimen (specimen) BLOOD SPECIMEN / Unknown 11/05/2012 9:21 AM CDT 11/05/2012 10:07 PM CDT Narrative Resulting Agency Comment [facility] [address] [facility] [phone] Iris Ruano MD LAB - CHEMISTRY EAMON LOPEZ Performing Organization Address City/[facility]/ZIP Co de Phone Number [facility] INSURANCE BILL * (ABNORMAL) URINALYSIS ROUTINE AUTO (05/10/2011 12:13 PM CDT) Specific [place] UA 1.015 1.005 - 1.030 [facility] ACCOUNT BILL pH UA 6.0 5.0 - 7.5 [facility] ACCOUNT BILL Color UA Yellow Yellow [facility] ACCOUNT BILL Appearance Clear Clear [facility] ACCOUNT BILL Leukocyte UA 1+(A) Negative [facility] ACCOUNT BILL Protein UA Negative Negative/Tra ce [facility] ACCOUNT BILL Glucose UA Negative Negative [facility] ACCOUNT BILL Glucose Reflex NOT NEEDED [facility] ACCOUNT BILL Comment:Ancillary determined the test is not needed Ketone UA Negative Negative [facility] ACCOUNT BILL Occult Blood Urine Trace(A) Negative [facility] ACCOUNT BILL Bilirubin UA Negative Negative [facility] ACCOUNT BILL Urobilinogen 0.2 0.0 - 1.9 mg/dL [facility] ACCOUNT BILL Nitrite UA Negative Negative [facility] ACCOUNT BILL Microscopic Examination Urine See below: [facility] ACCOUNT BILL Microscopic Examination Urine NOT NEEDED [facility] ACCOUNT BILL Comment:Ancillary determined the test is not needed BLOOD SPECIMEN / Unknown 05/10/2011 12:13 PM CDT 05/10/2011 10:10 PM CDT Narrative Resulting Agency Comment [facility] [place] [id number] [facility] [phone] Iris Ruano MD LAB - URINALYSIS ORD ERABLES [facility] ACCOUNT BILL * (ABNORMAL) URINALYSIS MICROSCOPIC ONLY (05/10/2011 12:13 PM CDT) Only the most recent of2 resultswithin the time period is included. WBC UA 6-10(A) 0 - 5 /hpf [facility] ACCOUNT BILL RBC UA 0-3 0 - 3 /hpf [facility] ACCOUNT BILL Epithelial Cells (non renal) 0-10 0 - 10 /hpf [facility] ACCOUNT BILL Epithelial Cells (renal) NOT NEEDED [facility] ACCOUNT BILL Comment:Ancillary determined the test is not needed Casts ua NOT NEEDED [facility] ACCOUNT BILL Comment:Ancillary determined the test is not needed Casts UA NOT NEEDED [facility] ACCOUNT BILL Comment:Ancillary determined the test is not needed Crystals UA NOT NEEDED [facility] ACCOUNT BILL Comment:Ancillary determined the test is not needed Crystals UA NOT NEEDED [facility] ACCOUNT BILL Comment:Ancillary determined the test is not needed Mucus UA Present Not Estab. [facility] ACCOUNT BILL Bacteria UA Few None seen/Few [facility] ACCOUNT BILL Yeast UA NOT NEEDED [facility] ACCOUNT BILL Comment:Ancillary determined the test is not needed Trichomonas UA NOT NEEDED [facility] ACCOUNT BILL Comment:Ancillary determined the test is not needed Comment Urine NOT NEEDED [facility] ACCOUNT BILL Comment:Ancillary determined the test is not needed BLOOD SPECIMEN / Unknown 05/10/2011 12:13 PM CDT 05/10/2011 10:10 PM CDT Narrative Resulting Agency Comment [facility] [address] [phone] Iris Ruano MD LAB - URINALYSIS ORD ERABLES Performing Organization Address City/[facility] Co de Phone Number [facility] ACCOUNT BILL * (ABNORMAL) URINALYSIS DIPSTICK (04/12/2010 9:53 AM CDT) Specific [place] UA 1.013 1.005 - 1.030 [facility] ACCOUNT BILL pH UA 6.5 5.0 - 7.5 [facility] ACCOUNT BILL Color UA Yellow Yellow [facility] ACCOUNT BILL Appearance Clear Clear [facility] ACCOUNT BILL Leukocyte UA Negative Negative [facility] ACCOUNT BILL Protein UA Negative Negative/Tra ce [facility] ACCOUNT BILL Glucose UA Negative Negative [facility] ACCOUNT BILL Ketone UA Negative Negative [facility] ACCOUNT BILL Occult Blood Urine Trace(A) Negative [facility] ACCOUNT BILL Bilirubin UA Negative Negative [facility] ACCOUNT BILL Urobilinogen 0.2 0.0 - 1.9 mg/dL [facility] ACCOUNT BILL Nitrite UA Negative Negative [facility] ACCOUNT BILL BLOOD SPECIMEN / Unknown 04/12/2010 9:53 AM CDT 04/12/2010 10:32 PM CDT Narrative Resulting Agency Comment [facility] [address] [phone] Iris Ruano MD LAB - URINALYSIS ORD ERABLES Performing Organization Address City/[facility] Co de Phone Number [facility] ACCOUNT BILL * CBC W/O DIFFERENTIAL (04/12/2010 9:53 AM CDT) WBC 7.4 4.0 - 10.5 x10E3/uL [facility] ACCOUNT BILL RBC 4.24 3.80 - 5.10 x10E6/uL [facility] ACCOUNT BILL Hemoglobin 12.9 11.5 - 15.0 g/dL [facility] ACCOUNT BILL Hematocrit 39.9 34.0 - 44.0 % [facility] ACCOUNT BILL MCV 94 80 - 98 fL [facility] ACCOUNT BILL MCH 30.4 27.0 - 34.0 pg [facility] ACCOUNT BILL MCHC 32.3 32.0 - 36.0 g/dL [facility] ACCOUNT BILL RDW 14.2 11.7 - 15.0 % [facility] ACCOUNT BILL Platelet Count 278 140 - 415 x10E3/uL [facility] ACCOUNT BILL Comment Hematology CANCELED [facility] ACCOUNT BILL Comment:Result canceled by t he ancillary nRBC CANCELED [facility] ACCOUNT BILL Comment:Result canceled by t he ancillary BLOOD SPECIMEN / Unknown 04/12/2010 9:53 AM CDT 04/12/2010 10:32 PM CDT Narrative Resulting Agency Comment [facility] [address] [phone] Iris Ruano MD LAB - HEMATOLOGY ORD ERABLES [facility] ACCOUNT BILL * IMAGING/RADIOLOGY/XRAY RESULTS ORDER (06/01/2009) Only the most recent of2 resultswithin the time period is included. Anatomical Region Laterality Modality Other Iris Ruano MD IMAGING * CARDIAC EKG ORDER (12/11/2007) Provider Unknown CARDIAC SERVICES ORD ERABLES
--- OUTSIDE RECORDS SUMMARY | 2024-09-18 08:40 | XMS_ITS | Encounter Summary ---
Author Organization [facility] Address Formerly [facility] [place] [address] Care Team Providers Care Clinic Specialist Name Role Phone Justino Majano MD Primary Care Provider [phone] Jevon Rosales DO Unavailable Steve Cruz MD Unavailable [phone] Encounter Details Date Type Department Care Team (Late st Contact Info) Description 06/19/2017 Pre-Procedure Call [facility] Interventional Radiology [place], [place] [phone] Dulce Miller, RN Social History Tobacco Use Types Packs/Day Years Used Date Smoking Tobacco: Never Assessed Comments Unknown Sex and Gender Information Value Date Recorded Sex Assigned at Not on file Legal Sex Female 2:41 PM CDT Gender Identity Not on file Sexual Orientation Not on file documented as of this encounter Last Filed Vital Signs Vital Sign Reading Time Taken Comments Blood Pressure - - Pulse - - Temperature - - Respiratory Rate - - Oxygen Saturation - - Inhaled Oxygen Concentration - - Weight 81.6 kg (180 lb) 06/19/2017 12:00 AM NORMALIZER Height 163.8 cm (5' 4.5 ) 06/19/2017 12:00 AM CS T Body Mass Index 30.42 06/19/2017 12:00 AM NORMALIZER documented in this encounter Plan of Treatment Not on file documented as of this encounter Visit Diagnoses Not on filedocumented in this encounter Care Teams Clinic Specialist Relationship Specialty Start Date End Date Justino Majano MD [address] [place] [address] PCP - General FAMILY PRACTICE 05/30/17 Jevon Rosales DO [address] [place], [place] [phone] INTERNAL MEDICINE 08/25/17 Steve Cruz MD [facility] [place] [address] OTOLARYNGOLOGY 08/25/17 documented as of this encounter
--- OUTSIDE RECORDS SUMMARY | 2024-09-18 08:40 | XMS_ITS | Clinical Summary ---
Author Organization [facility] Address [address] [place] [address] Care Team Providers Care Wildland Fire Operations Specialist Name Role Phone Justino Majano MD Primary Care Provider [phone] Jevon Rosales DO Unavailable Steve Cruz MD Unavailable [phone] Allergies No known active allergies Medications amlodipine 10 MG tablet Take 10 mg by mouth daily. 04/19/2017 Active colchicine 0.6 MG tablet TAKE ONE TABLET BY MOUTH TWICE DAILY, PRN GOUT SYMPTOMS 07/26/2016 Active fluticasone propionate 50 MCG/ACT nasal spray 2 sprays by Each Nare route daily. 05/27/2017 Active omeprazole 40 MG capsule 04/11/2017 Active probenecid 500 MG tablet 05/11/2017 Active quinapril 20 MG tablet TAKE ONE TABLET BY MOUTH TWICE DAILY 07/26/2016 Active Risedronate Sodium 35 MG Tab EC Take 35 mg by mouth once a week. TAKES ON THE WEEKENDS Active diphenhydrAMINE -APAP 25-500 MG Tab tablet Take 1 tablet by mouth nightly at bedtime. Active hydrocodone-yuliet taminophen (NORCO) 5-325 MG tablet Take 1 tablet by mouth every 4 (four) hours as needed for Pain. 20 tablet 09/01/2017 Active Family History Medical History Relation Comments Heart Disease Father Hypertension Father Cancer Mother LEUKEMIA Diabetes Mother Hypertension Mother Heart Disease Sister 1 Hypertension Sister 1 COPD Sister 2 Hypertension Sister 2 Relation Status Comments Father (Age 93) OLD AGE Mother (Age 76) ACUTE LEUKEMIA Sister 1 Sister 2 Social History Tobacco Use Types Packs/Day Years Used Date Smoking Tobacco: Never Smokeless Tobacco: Never Alcohol Use Standard Drinks/Week Comments No 0 (1 standard drink = 0.6 oz pur e alcohol) Comments No Sex and Gender Information Value Date Recorded Sex Assigned at Not on file Legal Sex Female 2:41 PM CDT Gender Identity Not on file Sexual Orientation Not on file Last Filed Vital Signs Vital Sign Reading Time Taken Comments Blood Pressure 125/88 09/01/2017 3:15 PM SHUTTLER CAR Pulse 76 09/01/2017 3:15 PM SHUTTLER CAR Temperature 36.4 C (97.5 F) 09/01/2017 3:15 PM SHUTTLER CAR Respiratory Rate 20 09/01/2017 3:15 PM SHUTTLER CAR Oxygen Saturation 98% 09/01/2017 3:15 PM SHUTTLER CAR Inhaled Oxygen Concentration - - Weight 79.7 kg (175 lb 11.3 oz) 09/01/2017 6:30 AM SHUTTLER CAR Height 163.8 cm (5' 4.5 ) 09/01/2017 6:30 AM SHUTTLER CAR Body Mass Index 29.69 09/01/2017 6:30 AM SHUTTLER CAR Plan of Treatment Health Maintenance Due Date Last Done Comments Colorectal Cancer Screening Colonoscopy (10 Years) 1950 Hepatitis C 1968 DTaP, Tdap and Td Vaccines (1 - Tdap) 1968 Annual Medicare Wellness Visit 2014 Dexa Scan (General) 2014 Zoster Vaccines (2 of 3) 04/23/2015 02/26/2015 Pneumococcal Vaccine: 65+ Years (2 of 2 - PCV) 05/05/2015 05/05/2014 COVID-19 Vaccine (1 - 2023- season) 2024 RSV Immunization or 60+ Years (1 - 1-dose 75+ series) 2024 Influenza Adult (#1) 2024 05/24/2016, 05/11/2015, 05/10/2011, Additional history exists Meningococcal B Vaccine Aged Out No l onger eligible based on patient's age to complete this topic Meningococcal Vaccine Aged Out No lonnie jj eligible based on patient's age to complete this topic RSV Immunizations Under 20 Months Aged Out No longer eligible based on patient's age to complete this topic Insurance [facility] Care Teams Wildland Fire Operations Specialist Relationship Specialty Start Date End Date Justino Majano MD [address] [place] [address] PCP - General FAMILY PRACTICE 05/30/17 Jevon Rosales DO [address] [place] [address] INTERNAL MEDICINE 08/25/17 Steve Cruz MD [address] [place] [address] OTOLARYNGOLOGY 08/25/17
[2024-09-18 13:27] LABS: Basophils Absolute Auto 0.1 K/mm3 (0.0-0.1); Basophils Percent Auto 0.7 % (0.2-1.2); Eosinophils Absolute Auto 0.2 K/mm3 (0-0.3); Hematocrit 35.1 % (37.0-47.0); Immature Granulocyte Absolute 0.02 K/mm3 (0.00-0.031); Immature Granulocyte Percent A 0.2 % (0-0.5); Lymphocytes Absolute Auto 2.57 K/mm3 (0.9-3.2); Lymphocytes Percent Auto 30.8 % (18.3-44.2); Mean Corpuscular HGB Conc 31.3 g/dl (32-36); Mean Corpuscular Hemoglobin 31.6 pg (26-34); Mean Corpuscular Volume 100.9 fl (80-100); Mean Platelet Volume 9.9 fl (7.4-10.4); Monocytes Absolute Auto 0.7 K/mm3 (0.1-0.6); Neutrophils Absolute Auto 4.9 K/mm3 (1.3-6.7); Neutrophils Percent Auto 58.3 % (45.5-73.1); Platelet Count Result 313 k/mm3 (150-375); Red Blood Count 3.48 M/mm3 (4.2-5.4); Red Cell Distribution Width 15.2 % (11.5-14.5); White Blood Count 8.4 K/mm3 (4.5-10.0)
[2024-09-18 13:43] LABS: Alanine Aminotransferase 16 U/L (6-35); Albumin Level 4.4 g/dL (3.5-5.1); Alkaline Phosphatase 74 U/L (38-126); Anion Gap 12 mmol/L (4-12); Aspartate Amino Transferase 49 U/L (14-36); Bilirubin,Total 0.6 mg/dL (0.2-1.3); Blood Urea Nitrogen 14 mg/dL (7-17); Calcium 9.4 mg/dL (8.4-10.2); Carbon Dioxide 25 mmol/L (22-30); Chloride 103 mmol/L (98-107); Cholesterol 151 mg/dL (0-200); Estimated Glomerular Filt Rate > 60; Glucose 97 mg/dL (65-110); HDL Direct 31 mg/dL; Potassium 4.5 mmol/L (3.4-5.0); Sodium 140 mmol/L (137-145); Triglycerides 117 mg/dL (<150)
[2024-09-18 13:53] LABS: Vitamin D 25 Hydroxy 35.8 ng/mL
[2024-09-18 13:54] LABS: LDL Cholesterol Direct 81 mg/dL
[2024-09-18 17:18] LABS: Hemoglobin A1C 6.1 % (<5.7)
== END 2024-09-18 08:22 | disposition home or self-care (01) ==
PROVIDERS: PCP Family Medicine; Visit Provider Nurse Practitioner Family
DX: E55.9 Vitamin D deficiency, unspecified (principal); E78.5 Hyperlipidemia, unspecified; I10 Essential (primary) hypertension; R73.03 Prediabetes
CPT/HCPCS: 36415; 80053; 80061; 82306; 83036; 84443; 85025

== ENCOUNTER 2025-01-07 12:48 | Outpatient (CLI) | payer MEDICARE, SELFPAY ==
--- NOTE | ~2025-01-07 | DEXA_ITS ---
Bone Density Report Name: CHRIS MENA Age: 74 Sex: Female Ethnicity: White Date of : 1950 Indication: postmenopausal; screening for osteoporosis; height loss; Referring Provider: WALLY POWELL Study: Bone densitometry was performed. Exam Date: January 07, 2025 Accession number: [id number] Bone Density: Region BMD T-score Z-score Classification AP Spine(L1-L4) 0.956 -0.8 1.6 Normal Femoral Neck (Left) 0.630 -2.0 0.1 Osteopenia Total Hip (Left) 0.868 -0.6 1.2 Normal Femoral Neck (Right) 0.686 -1.5 0.6 Osteopenia Total Hip (Right) 0.833 -0.9 0.9 Normal Total Hip Mean 0.850 -0.8 1.1 Normal World Health Organization criteria for BMD impression classify patients as: Normal (T-score at or above -1.0), Osteopenia (T-score between -1.0 and -2.5), or Osteoporosis (T-score at or below -2.5). 10-year Fracture Risk(1): Major Osteoporotic Fracture 12% Hip Fracture 3.0% Reported Risk Factors: [place] (), Neck BMD=0.630, BMI=32.9 (1) FRAX(R) Version 3.08. Fracture probability calculated for an untreated patient. Fracture probability may be lower if the patient has received treatment. Clinical Information Provided by Patient: Has used the following medications: Vitamin D, Calcium Patient maximum height was 65 Menopause Age: 49 No regular weight bearing exercise Drinks caffeinated beverages Onset of menses at age 11 Number of children 4 Impression: The patient has low bone mass, based on the Left Femoral Neck T-score. The patient has an estimated ten-year risk of hip fracture of 3% and an estimated ten-year risk of major fracture of 12%, based on the WHO FRAX algorithm. Discussion: BONE DENSITY IS LOW AT ONE OR MORE SKELETAL SITES. THE PATIENT'S BMD AND CLINICAL RISK FACTORS CONTRIBUTE TO THIS PATIENT'S INCREASED RISK OF FRACTURE. This patient's lowest T-score is low at one or more skeletal sites. It meets the World Health Organization's (WHO) criteria for ?low bone mass? (T-score between -1.0 and -2.5). The patient's 10-year risk of hip fracture as calculated by FRAX exceeds the threshold where pharmacological therapy is recommended by the National Osteoporosis Foundation (NOF). However, all treatment decisions require clinical judgment and consideration of individual patient factors, including patient preferences, comorbidities, previous drug use, risk factors not captured in the FRAX model (e.g., frailty, falls, vitamin D deficiency, increased bone turnover, interval significant decline in bone density) and possible under or overestimation of fracture risk by FRAX. The patient should follow a healthful lifestyle (good nutrition with adequate calcium and vitamin D, and appropriate weight-bearing exercise). Follow-Up: Consider a repeat BMD and Vertebral Fracture Assessment (VFA) exam in 2 years or sooner if medically necessary, to reassess this patient's status. Reported by: LEONEL on 01/07/2025 1:34:00 PM. Reviewed, dictated and finalized at location A.
--- OUTSIDE RECORDS SUMMARY | 2025-01-07 12:52 | XMS_ITS | Encounter Summary ---
Author Organization [facility] Health Address [address] [facility] [place] [address] Care Team Providers Care Territory Supervisor Name Role Phone Iris Ruano MD Unavailable [phone] Encounter Details Date Type Department Care Team (Late st Contact Info) Description 01/30/2019 Lab Requisition [facility] Care DermPath Lab [address] [facility] [place] [phone] Abdelrahman Jones MD [address] [place] [address] Social History Tobacco Use Types Packs/Day Years Used Date Smoking Tobacco: Never Smokeless Tobacco: Never Alcohol Use Standard Drinks/Week Comments No 0 (1 standard drink = 0.6 oz pur e alcohol) Comments No Sex and Gender Information Value Date Recorded Sex Assigned at Not on file Legal Sex Female 6:34 AM QUALITY ASSOCIATE Gender Identity Not on file Sexual Orientation [...] AM CDT) Case Report Dermatopathology Report Case: [id number] Authorizing Provider: Abdelrahman Jones MD Collected: 01/29/2019 12:00 AM Pathologist: Jayne Conte MD Received: 01/30/2019 12:43 PM Specimen: Skin, left upper lat back 1:14 PM CDT DERMATOPATHOLOGY LABORATORY Final Diagnosis Specimen A. SKIN, left upper lat back: LICHEN PLANUS-LIKE KERATOSIS (BENIGN LICHENOID KERATOSIS) (L82.1) 1:14 PM CDT DERMATOPATHOLOGY LABORATORY at 1314 CDT Clinical History R/O Dys nevus. 1:14 PM CDT DERMATOPATHOLOGY LABORATORY Gross Description Specimen A: Received is one formalin filled container labeled with the patient's name and designated left upper lat back. The specimen consists of a shave biopsy measuring [id number]. Jar 0. 1:14 PM CDT DERMATOPATHOLOGY LABORATORY [...] characteristic determined by the Dermatopathology Laboratory at [facility], directed by Dr. Wilmer Turner. These tests need not be, and therefore are not, approved by the [place] Food and Drug Administration. The tests are used for clinical purposes. Billing Codes Specimen Charges Stain Charges 37602 1 1:14 PM CDT DERMATOPATHOLOGY LABORATORY Embedded Images 1:14 PM CDT DERMATOPATHOLOGY LABORATORY Pathology/Cytolog y TISSUE SPECIMEN FROM SKIN / Unknown 01/29/2019 01/30/2019 12:43 PM CDT us Abdelrahman Jones MD LAB - PATHOLOGY/CYTOLOGY ORD ERABLES Final Result DERMATOPATHOLOGY LABORATORY [facility] - Department of Dermatology [address] [facility], 5th Floor Lab [address] [phone] documented in this encounter Visit Diagnoses Not on filedocumented in this encounter Care Teams Territory Supervisor Relationship Specialty Start Date End Date Iris Ruano MD [address] [place] [address] PCP - Attributed-[facility] 05/31/18 documented as of this encounter
--- OUTSIDE RECORDS SUMMARY | 2025-01-07 12:52 | XMS_ITS | Encounter Summary ---
Author Organization [facility] Health Address [address] [place] [address] Care Team Providers Care Relationship Assoc Name Role Phone Unavailable Primary Care Provider Unavailabl e Encounter Details Date Type Department Care Team (Late st Contact Info) Description 06/19/2023 Lab Requisition [facility] - DermPath Lab [address] [facility], [place] [phone] Lisa Shore MD [address] [facility] [address] [place] [address] Social History Tobacco Use Types Packs/Day Years Used Date Smoking Tobacco: Never Smokeless Tobacco: Never Alcohol Use Standard Drinks/Week Comments No 0 (1 standard drink = 0.6 oz pur e alcohol) Comments No Sex and Gender Information Value Date Recorded Sex Assigned at Not on file Legal Sex Female 6:34 AM TURF SALES PERSON Gender Identity Not on file Sexual Orientation [...] Date/Time Associated Diagnosis Comments DERMATOPATHOLOGY Routine 06/19/2023 1:23 PM TURF SALES PERSON documented in this encounter Results * DERMATOPATHOLOGY (06/19/2023 1:23 PM TURF SALES PERSON) Case Report Dermatopathology Report Case: [id number] Authorizing Provider: Lisa Shore MD Collected: 06/19/2023 01:23 PM Ordering Location: [facility] DermPath Lab Received: 06/20/2023 11:36 AM Pathologist: Jayne Conte MD Specimens: A) - Skin, left garcia B) - Skin, left back 1:14 PM [facility] DERMATOPATHOLOGY LABORATORY Final Diagnosis Specimen A. 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 SKIN, left back: EPIDERMAL NECROSIS SUGGESTIVE OF EXCORIATION (L98.499) 1:14 PM [facility] DERMATOPATHOLOGY LABORATORY at 1314 TURF SALES PERSON Clinical History A-B: R/O BCC, SCC; Grabill Papule 1:14 PM [facility] DERMATOPATHOLOGY LABORATORY Gross Description Specimen A: [...] measuring 7x6x1 mm. Jar 0. 1:14 PM [facility] DERMATOPATHOLOGY LABORATORY Microscopic Description Specimen A. SKIN, left garcia: The epidermis is focally necrotic and covered with a subcorneal pustule and inflamed serum scale-crust containing bacteria. There is fibrin at the base. Specimen B. SKIN, left back: The epidermis is focally necrotic and covered with a scale-crust. There is fibrin at the base. 1:14 PM [facility] DERMATOPATHOLOGY LABORATORY Disclaimer An external and internal positive and negative controls are appropriate for the histochemical, immunohistochemical and immunofluorescence stain(s) in this case (if any), except where stated explicitly. The performance characteristics of the stain(s) cited in this report were developed and its performance characteristic determined by the Dermatopathology Laboratory at [facility], directed by Dr. Wilmer Turner. These tests need not be, and therefore are not, approved by the [place] Food and Drug Administration. The tests are used for clinical purposes. Billing Codes Specimen Charges Stain Charges 12429 56397 1 1 3 1:14 PM [facility] DERMATOPATHOLOGY LABORATORY Embedded Images 12/13/202 3 1:14 PM TURF SALES PERSON DERMATOPATHOLOGY LABORATORY Pathology/Cytology TISSUE SPECIMEN FROM SKIN / Unknown 06/19/2023 1:23 PM TURF SALES PERSON 06/20/2023 11:36 AM TURF SALES PERSON Miscellaneous samples (specimen) TISSUE SPECIMEN FROM SKIN / Unknown 06/19/2023 1:23 PM TURF SALES PERSON 06/20/2023 11:36 AM TURF SALES PERSON us Lisa Shore MD LAB - PATHOLOGY/CYTOLOGY ORD ERABLES Final Result DERMATOPATHOLOGY LABORATORY [facility] - Department of Dermatology [facility] Specialized Medicine [address] [place] [address], [address] [phone] documented in this encounter Visit Diagnoses Not on filedocumented in this encounter
--- OUTSIDE RECORDS SUMMARY | 2025-01-07 12:52 | XMS_ITS | Clinical Summary ---
Author Organization [facility] [employer] Address [address] [place] [address] Care Team Providers Care Ribbon Cutter Name Role Phone Unavailable Primary Care Provider Unavailabl e Source Comments [facility] [employer],non-owned Affiliates and Associated Physician Practices is amultiple site organization consisting of ambulatory clinics and hospital sitesin [place], [place], [place] and [place]. This disclosure is being madepursuant to the Care Everywhere program and may not contain all information available regarding this patient. Last updated 18.[facility] [employer] Allergies Active Allergy Reactions Criticality Noted Date Comments Calcium 01/29/2013 Thiazide-Type Diuretics 01/29/2013 Medications * Be aware that medications may not be up to date on this document. Alwaysverify current medications with the patient. ZYRTEC PO Take by mouth as needed [...] 05/05/2014 Overview (05/17/2015): HTN (hypertension) 5 Immunizations Immunization Administration Dates Next Due INFLUENZA VACCINE, TRIV. [...] on file Legal Sex Female 6:34 AM FENCE SETTER Gender Identity Not on file Sexual Orientation [...] 10:59 AM CDT Height 163.8 cm (5' 4.5) 10/26/2015 10:59 AM CD T Body Mass [...] - Tdap) 10/06/2021 10/07/2011, 07/10/2004 COVID-19 VACCINE ( - season) 2024 Respiratory Syncytial Virus (RSV) Vaccine Pt: or over 60 yrs (1 - 1-dose 75+ series) 2024 DEPRESSION SCREENING 07/10/2024 MEDICARE AWV CALENDAR YEAR 2024 INFLUENZA VACCINE (Season Ended) 2025 05/24/2016, 05/11/2015, 05/02/2012, Additional history exists COLON MONITORING 04/15/2025 04/15/2015 COLONOSCOPY - COLON [...] HEPATITIS C ANTIBODY Routine 06/19/2013 9:32 AM FENCE SETTER Need for hepatitis C screening test DEXA [...] PM CDT Narrative Resulting Agency Comment [facility] [address] [facility] [phone] Iris Ruano MD LAB - CHEMISTRY ORDERABLES Eboni l Result [facility] ACCOUNT BILL [address] [place] [address] * MAMMOGRAPHY ORDER (06/27/2015) Anatomical Region Laterality Modality Other Iris Ruano MD MAMMO ORDERABLES Final Result * ENDOSCOPY, COLON, SCREENING (04/15/2015) Provider Unknown GI PROCEDURE ORDERABLES Final R esult * HEPATITIS C ANTIBODY (06/19/2013 9:32 AM FENCE SETTER) Hepatitis C Antibody <0.1 0.0 - 0.9 s/co ratio [facility] INSURANCE BILL Comment: Negative: < 0.8 Indeterminate 0.8 - 0.9 Positive: > 0.9 . In order to reduce the incidence of a false positive result, the CDC recommends that all s/co ratios between 1.0 and 10.9 be confirmed by a more specific supplemental or PCR testing. [facility] w/Reflex to Verification test #[id number]. Blood specimen (specimen) BLOOD SPECIMEN / Unknown 06/19/2013 9:32 AM FENCE SETTER 06/19/2013 8:43 PM FENCE SETTER Narrative Resulting Agency Comment [facility] [address] [facility] [phone] Iris Ruano MD LAB - CHEMISTRY ORDERABLES Eboni l Result [facility] INSURANCE BILL [address] [place] [address] * DEXA BONE DENSITY 2 SITES (01/02/2013) Anatomical Region Laterality Modality Other Roland Le MD DEXA ORDERABLES Final Result from Last 3 Months or Most Recently Relevant to Health Maintenance Insurance [employer] MEDICARE ADV MANAGED [place] [address]
--- OUTSIDE RECORDS SUMMARY | 2025-01-07 12:52 | XMS_ITS | Clinical Summary ---
Author Organization [facility] Address [address] [place] [address] Care Team Providers Care Stationary Engineer Name Role Phone Ruthann Landaverde MD Primary [...] Flonase. Assessment & Plan (08/10/2019 4:01 PM SCALLOPER): I will repeat her ESR. Obtain methacholine challenge test. Currently she is off the QVAR. If methacholine challenge test is normal she does not need to go back on QVAR. Assessment & Plan (06/29/2019 11:29 AM SCALLOPER): Chronic cough with differential off reactive airway [...] plan. Assessment & Plan (08/10/2019 4:01 PM SCALLOPER): Continue with Flonase/Zyrtec and intranasal ipratropium. Assessment & Plan (06/29/2019 11:29 AM SCALLOPER): Continue with Flonase and Zyrtec. Add intranasal ipratropium. Gastroesophageal reflux disease without esophagi tis 06/29/2019 Assessment & Plan (02/06/2020 11:11 AM CDT): Continue with omeprazole. Assessment & Plan (11/07/2019 4:48 PM CDT): Continue with omeprazole. Assessment & Plan (08/10/2019 4:01 PM SCALLOPER): Continue with omeprazole. Assessment & Plan (06/29/2019 11:30 AM SCALLOPER): Continue with omeprazole. Immunizations Immunization Administration Dates [...] on file Legal Sex Female 9:59 AM SCALLOPER Gender Identity Not on file Sexual Orientation [...] 8:43 AM CDT Height 165.1 cm (5' 5) 02/06/2020 9:20 AM CDT Body Mass Index [...] season) 2024 09/28/2020, 08/27/2020 Influenza Vaccine (#1) 2025 9, 05/24/2016, 05/11/2015, Additional history exists Colon [...] Relevant to Health Maintenance Insurance [employer] MEDICARE Care Teams Stationary Engineer Relationship Specialty Start Date End Date Ruthann Landaverde MD PCP - General Family Practice 02/11/21
--- OUTSIDE RECORDS SUMMARY | 2025-01-07 12:52 | XMS_ITS | Referral Summary ---
Author Organization [facility] Address [address] [place] [address] Care Team Providers Care Greenkeeper Name Role Phone Ruthann Landaverde MD Primary [...] Flonase. Assessment & Plan (08/10/2019 4:01 PM REGIONAL PLANNER): I will repeat her ESR. Obtain methacholine challenge test. Currently she is off the QVAR. If methacholine challenge test is normal she does not need to go back on QVAR. Assessment & Plan (06/29/2019 11:29 AM REGIONAL PLANNER): Chronic cough with differential off reactive airway [...] plan. Assessment & Plan (08/10/2019 4:01 PM REGIONAL PLANNER): Continue with Flonase/Zyrtec and intranasal ipratropium. Assessment & Plan (06/29/2019 11:29 AM REGIONAL PLANNER): Continue with Flonase and Zyrtec. Add intranasal ipratropium. Gastroesophageal reflux disease without esophagi tis 06/29/2019 Assessment & Plan (02/06/2020 11:11 AM CDT): Continue with omeprazole. Assessment & Plan (11/07/2019 4:48 PM CDT): Continue with omeprazole. Assessment & Plan (08/10/2019 4:01 PM REGIONAL PLANNER): Continue with omeprazole. Assessment & Plan (06/29/2019 11:30 AM REGIONAL PLANNER): Continue with omeprazole. Immunizations Immunization Administration Dates [...] on file Legal Sex Female 9:59 AM REGIONAL PLANNER Gender Identity Not on file Sexual Orientation [...] Most Recently Relevant to Health Maintenance Insurance AET MEDICARE Care Teams Greenkeeper Relationship Specialty Start Date End Date Ruthann Landaverde MD PCP - General Family Practice 02/11/21
== END 2025-01-07 12:49 | disposition home or self-care (01) ==
LOC: ANHIMG 12:49
PROVIDERS: PCP Family Medicine; Visit Provider Nurse Practitioner Family
DX: Z78.0 Asymptomatic menopausal state (principal); M85.852 Other specified disorders of bone density and structure, left thigh; M85.851 Other specified disorders of bone density and structure, right thigh
CPT/HCPCS: 77080

== ENCOUNTER 2025-05-05 10:20 | Outpatient (CLI) | payer MEDICARE, SELFPAY ==
--- OUTSIDE RECORDS SUMMARY | 2025-05-05 11:45 | XMS_ITS | Clinical Summary ---
Author Organization [facility] Address [address] [place] [address] Care Team Providers Care Casket Upholsterer Name Role Phone Ruthann Landaverde MD Primary [...] nostril daily 1 Inhaler 11 0 Active Additional Information Patient not taking.Reported on 02/06/2025 fluticasone propionate (FLOVENT HFA) 220 mcg/actuation inhaler Inhale 2 puffs 2 (two) times a day Rinse mouth with water after use. Do not swallow. 1 Inhaler 11 0 Active Additional Information Patient not taking.Reported on 02/06/2025 ipratropium (ATROVENT) 0.03 % nasal spray Administer 2 sprays into each nostril 3 (three) times a day 5 mL 3 0 Active Additional Information Patient not taking.Reported on 02/06/2025 montelukast (SINGULAIR) 10 mg tablet Take 1 tablet (10 mg total) by mouth nightly 30 tablet 11 1 Active Additional Information Patient not taking.Reported on 02/06/2025 diltiazem LA (CARDIZEM LA) 360 mg 24 hr tablet Take 1 tablet (360 mg total) by mouth daily Active allopurinoL (ZYLOPRIM) 300 mg tablet Take 1 tablet (300 mg total) by mouth daily Active multivitamin with iron tablet Take 1 tablet by mouth daily Active Active Problems Problem Noted Date Diagnosed Date Chronic cough 06/29/2019 Assessment & Plan (02/06/2020 11:10 AM CDT): Continue with Flonase, ipratropium nasal spray and Zyrtec. If symptoms persist may need a referral to Allergy and immunology. Assessment & Plan (11/07/2019 4:48 PM CDT): Methacholine challenge test is normal. DC QVAR. Continue with Zyrtec and Flonase. Assessment & Plan (08/10/2019 4:01 PM CUSTODY ASSISTANT): I will repeat her ESR. Obtain methacholine challenge test. Currently she is off the QVAR. If methacholine challenge test is normal she does not need to go back on QVAR. Assessment & Plan (06/29/2019 11:29 AM CUSTODY ASSISTANT): Chronic cough with differential off reactive airway [...] plan. Assessment & Plan (08/10/2019 4:01 PM CUSTODY ASSISTANT): Continue with Flonase/Zyrtec and intranasal ipratropium. Assessment & Plan (06/29/2019 11:29 AM CUSTODY ASSISTANT): Continue with Flonase and Zyrtec. Add intranasal ipratropium. Gastroesophageal reflux disease without esophagi tis 06/29/2019 Assessment & Plan (02/06/2020 11:11 AM CDT): Continue with omeprazole. Assessment & Plan (11/07/2019 4:48 PM CDT): Continue with omeprazole. Assessment & Plan (08/10/2019 4:01 PM CUSTODY ASSISTANT): Continue with omeprazole. Assessment & Plan (06/29/2019 11:30 AM CUSTODY ASSISTANT): Continue with omeprazole. Encounters Date Type Department Care Team Description 02/06/2025 9:55 AM CDT Ancillary Procedure [facility] Imaging at [address] [address] Acute pain of both knees 02/06/2025 9:50 AM CDT Ancillary Procedure [facility] Medical [facility] Imaging at [address] [address] 02/06/2025 9:30 AM CDT Office Visit [facility] Orthopedic and Sports Medicine [address] [place] [phone] Susan Cantrell PA Acute pain of both knees (Primary Dx); Bilateral knee effusions; Primary osteoarthritis of both knees from Last 3 Months Immunizations Immunization Administration Dates Next Due DT [...] Date Smoking Tobacco: Never Smokeless Tobacco: Never Comments Unknown Sex and Gender Information Value Date Recorded Sex Assigned at Not on file Legal Sex Female 9:59 AM CUSTODY ASSISTANT Gender Identity Not on file Sexual Orientation Not on file Obstetrics History Last Filed Vital Signs Vital Sign Reading Time Taken Comments Blood Pressure 141/86 02/06/2025 9:55 AM CDT Pulse 79 02/06/2025 9:55 AM CDT Temperature 36.4 C (97.5 F) 02/11/2021 8:43 AM CDT Respiratory Rate 18 02/11/2021 8:43 AM CDT Oxygen Saturation 98% 02/11/2021 8:43 AM CDT Inhaled Oxygen Concentration - - Weight 87.1 kg (192 lb) 02/06/2025 9:55 AM CDT Height 165.1 cm (5' 5) 02/06/2025 9:55 AM CDT Body Mass Index 31.95 02/06/2025 9:55 AM CDT Plan of Treatment Health Maintenance Due Date Last Done Comments Depression Screening 1950 Fall Risk Assessment 1950 Hepatitis C Screening 1950 Osteoporosis Screening-Bone Density Scan 1950 Hepatitis B Screening 1967 Well Visit 65+ 2014 Zoster Vaccine (2 of 3) 04/23/2015 02/26/2015 DTaP/Tdap/Td Vaccine (4 - Td or Tdap) 07/10/2022 07/10/2012, 10/07/2011, 07/10/2004 Covid-19 Vaccine (3 - 2024-2 6 season) 2025 09/28/2020, 08/27/2020 Influenza Vaccine (#1) 2025 9, 05/24/2016, 05/11/2015, Additional history exists Colon Cancer Screening-CT Colonography Discontinued 04/15/2015 Colon Cancer Screening-Colonoscopy Discontinued 04/15/2015 Colon Cancer Screening-DNA Stool Discontinued 04/15/20 Colon Cancer Screening-FIT Discontinued 04/15/2015 Colon Cancer Screening-FOBT Discontinued 04/15/2015 Colon Cancer Screening-Sigmoidoscopy Discontinued 04/15/2015 Colorectal Cancer Screening Discontinued Pneumococcal vaccine 65+ Completed 020, 06/18/2018, 05/05/2014 Procedures Procedure Name Priority Date/Time Associated Diagnosis Comments XR KNEE BILATERAL 4 OR MORE VIEWS Schedule Routine, Read Routine (OP Routine) 02/06/2025 9:53 AM CDT Acute pain of both knees XR PELVIS 1 OR 2 VIEWS Schedule Routine, Read Routine (OP Routine) 02/06/2025 9:53 AM CDT Acute pain of both knees MI ARTHROCENTESIS ASPIR&/INJ MAJOR JT/BURSA W/O US Routine 02/06/2025 9:30 AM CDT Acute pain of both knees Bilateral knee effusions Primary osteoarthritis of both knees COLONOSCOPY REPORT 04/15/2015 from Last 3 Months or Most Recently Relevant to Health Maintenance Results * XR Knee Bilateral 4 or More Views (02/06/2025 9:53 AM CDT) Anatomical Region Laterality Modality Lower Extremities, Knee Digital Radiography Narrative 02/20/2025 12:54 PM CDT Weightbearing views of the bilateral knee are reviewed and demonstrate no acute fractures or destructive osseous lesions. Tricompartmental degenerative changes present with joint space narrowing, osteophyte formation, and subchondral sclerosis. Susan PEREZ IMG XR PROCEDURES Final Result * XR Pelvis 1 or 2 Views (02/06/2025 9:53 AM CDT) Anatomical Region Laterality Modality Body, Pelvis N/A Digital Radiogra phy Narrative 02/20/2025 12:55 PM CDT Radiographs of the pelvis is reviewed interpreted. No acute fractures or destructive osseous lesions. Mild degenerative changes femoral acetabular joints, degenerative changes also appreciated of visualized segments of lower lumbar spine. Result [facility] Susan PEREZ IMG XR PROCEDURES Final Result * MI ARTHROCENTESIS ASPIR&/INJ MAJOR JT/BURSA W/O US (02/06/2025 9:30 AM CDT) Narrative Dale Dhaliwal MD - 02/06/2025 9:30 AM CDT Dale Dhaliwal MD 04/11/2025 11:57 AM Large Joint (Hip, Knee, Shoulder) Injection: bilateral knee Performed by: Susan Cantrell PA Authorized by: Susan Cantrell PA Large Joint Injection/Aspiration: Consent Given by: Patient Site marked: the procedure site was marked Timeout: prior to procedure the correct patient, procedure, and site was verified Verbal consent obtained: Yes Supporting Documentation: Indications: Pain Procedure Details: Location: Knee Site: Bilateral knee Prep: patient was prepped and draped in usual sterile fashion Needle Size: 22 G Approach: Anterolateral Ultrasound guided: No Fluroscopic guidance: No Medications Right Large Joint Injection: 80 mg methylPREDNISolone acetate 80 mg/mL; 3 mL lidocaine 20 mg/mL (2 %) Medications Left Large Joint Injection: 80 mg methylPREDNISolone acetate 80 mg/mL; 3 mL lidocaine 20 mg/mL (2 %) Patient tolerance: Patient tolerated the procedure well with no immediate complications Result [facility] Susan PEREZ IN CLINIC/BEDSIDE ORDER MIMI Final Result * COLONOSCOPY REPORT (04/15/2015) Anatomical Region Laterality Modality Other Narrative 04/15/2015 Ordered by an unspecified provider. Result [facility] Historical Provider GI PROCEDURE ORDERABLES F inal Result from Last 3 Months or Most Recently Relevant to Health Maintenance Insurance AETNA MEDICARE Care Teams Casket Upholsterer Relationship Specialty Start Date End Date Ruthann Landaverde MD PCP - General Family Practice 02/11/21
--- OUTSIDE RECORDS SUMMARY | 2025-05-05 11:45 | XMS_ITS | Encounter Summary ---
Author Organization [facility] Address [address] [place] [address] Care Team Providers Care Highway Construction Inspector Name Role Phone Iris Ruano MD Unavailable [phone] Encounter Details Date Type Department Care Team (Late st Contact Info) Description 01/30/2019 Lab Requisition [facility] Care DermPath Lab [address] [facility] [place] [phone] Abdelrahman Jones MD [address] [place] [address] Social History Tobacco Use Types Packs/Day Years Used Date Smoking Tobacco: Never Smokeless Tobacco: Never Alcohol Use Standard Drinks/Week Comments No 0 (1 standard drink = 0.6 oz pur e alcohol) Comments No Sex and Gender Information Value Date Recorded Sex Assigned at Not on file Legal Sex Female 6:34 AM MAPPING PILOT Gender Identity Not on file Sexual Orientation [...] AM CDT) Case Report Dermatopathology Report Case: [id number] Authorizing Provider: Abdelrahman Jones MD Collected: 01/29/2019 [...] specimen consists of a shave biopsy measuring [id number]. Jar 0. 1:14 PM CDT DERMATOPATHOLOGY LABORATORY [...] characteristic determined by the Dermatopathology Laboratory at [facility], directed by Dr. Wilmer Turner. These tests need not be, and therefore are not, approved by the [place] Food and Drug Administration. The tests are used for clinical purposes. Billing Codes Specimen Charges Stain Charges 73796 1 1:14 PM CDT DERMATOPATHOLOGY LABORATORY Embedded Images 1:14 PM CDT DERMATOPATHOLOGY LABORATORY Pathology/Cytolog y TISSUE SPECIMEN FROM SKIN / Unknown 01/29/2019 01/30/2019 12:43 PM CDT us Abdelrahman Jones MD LAB - PATHOLOGY/CYTOLOGY ORD ERABLES Final Result DERMATOPATHOLOGY LABORATORY [facility] - Department of Dermatology [address] [facility], 5th Floor Lab [address] [phone] documented in this encounter Visit Diagnoses Not on filedocumented in this encounter Care Teams Highway Construction Inspector Relationship Specialty Start Date End Date Iris Ruano MD [address] [place] [address] PCP - Attributed-[facility] 05/31/18 documented as of this encounter
--- OUTSIDE RECORDS SUMMARY | 2025-05-05 11:45 | XMS_ITS | Clinical Summary ---
Author Organization [facility] Address [address] [place] [address] Care Team Providers Care Sales Project Manager Name Role Phone Unavailable Primary Care Provider Unavailabl e Source Comments [facility],non-owned Affiliates and Associated Physician Practices is amultiple site organization consisting of ambulatory clinics and hospital sitesin [place], [place], [place] and [place]. This disclosure is being madepursuant to the Care Everywhere program and may not contain all information available regarding this patient. Last updated 18.[facility] Allergies Active Allergy Reactions Criticality Noted Date [...] on file Legal Sex Female 6:34 AM DOPE EDGER Gender Identity Not on file Sexual Orientation [...] Health Maintenance Due Date Last Done Comments ZOSTER VACCINE (2 of 3) 04/23/2015 02/26/2015 PNEUMOCOCCAL VACCINE 50+ (2 of 2 - PCV) 05/05/2015 05/05/2014 DTAP/TDAP/TD VACCINES (3 - Tdap) 10/06/2021 10/07/2011, 07/10/2004 Respiratory Syncytial Virus (RSV) Vaccine Pt: or over 60 yrs (1 - 1-dose 75+ series) 2024 DEPRESSION SCREENING 07/10/2024 MEDICARE AWV CALENDAR YEAR 2024 COVID-19 VACCINE ( season) 2025 INFLUENZA VACCINE (#1) 2025 6, 05/11/2015, 05/02/2012, Additional history exists BONE DENSITY TESTING Addressed 04/09/2013 (Previously completed), [...] Procedure Name Priority Date/Time Associated Diagnosis Comments HEPATITIS C ANTIBODY Routine 06/19/2013 9:32 AM DOPE EDGER Need for hepatitis C screening test DEXA BONE DENSITY 2 SITES Routine 01/02/2013 from Last 3 Months or Most Recently Relevant to Health Maintenance Results * HEPATITIS C ANTIBODY (06/19/2013 9:32 AM DOPE EDGER) Hepatitis C Antibody <0.1 0.0 - 0.9 s/co ratio [facility] INSURANCE BILL Comment: Negative: < 0.8 Indeterminate 0.8 - 0.9 Positive: > 0.9 . In order to reduce the incidence of a false positive result, the CDC recommends that all s/co ratios between 1.0 and 10.9 be confirmed by a more specific supplemental or PCR testing. [facility] offers HCV Ab w/Reflex to Verification test #[id number]. Blood specimen (specimen) BLOOD SPECIMEN / Unknown 06/19/2013 9:32 AM DOPE EDGER 06/19/2013 8:43 PM DOPE EDGER Narrative Resulting Agency Comment [facility] [address] [facility] [phone] us Iris Ruano MD LAB - CHEMISTRY ORDERABLES Eboni l Result [facility] INSURANCE BILL [address] [place] [address] * DEXA BONE DENSITY 2 SITES (01/02/2013) Anatomical Region Laterality Modality Other us Roland Le MD DEXA ORDERABLES Final Result from Last 3 Months or Most Recently Relevant to Health Maintenance Insurance AETNA [place]IC[place] [address] [facility] MANAGED MEDICARE [place] [address]
--- OUTSIDE RECORDS SUMMARY | 2025-05-05 11:45 | XMS_ITS | Encounter Summary ---
Author Organization [facility] Health Address [address] [place] [address] Care Team Providers Care National Accounts Sales Name Role Phone Unavailable Primary Care Provider Unavailabl e Encounter Details Date Type Department Care Team (Late st Contact Info) Description 06/19/2023 Lab Requisition [facility] - DermPath Lab [address] [facility] [place] [phone] Lisa Shore MD [address] [facility] [address] [address] [place] [address] Social History Tobacco Use Types Packs/Day Years Used Date Smoking Tobacco: Never Smokeless Tobacco: Never Alcohol Use Standard Drinks/Week Comments No 0 (1 standard drink = 0.6 oz pur e alcohol) Comments No Sex and Gender Information Value Date Recorded Sex Assigned at Not on file Legal Sex Female 6:34 AM ACCOUNT EXECUTIVE METALWORKING Gender Identity Not on file Sexual Orientation [...] Diagnosis Comments DERMATOPATHOLOGY Routine 06/19/2023 1:23 PM ACCOUNT EXECUTIVE METALWORKING documented in this encounter Results * DERMATOPATHOLOGY (06/19/2023 1:23 PM ACCOUNT EXECUTIVE METALWORKING) Case Report Dermatopathology Report Case: [id number] Authorizing Provider: Lisa Shore MD Collected: 06/19/2023 01:23 PM Ordering Location: [facility] DermPath Lab Received: 06/20/2023 11:36 AM Pathologist: Jayne Conte MD Specimens: A) - Skin, left garcia B) - Skin, left back 1:14 PM [facility] DERMATOPATHOLOGY LABORATORY Final Diagnosis Specimen A. 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 SKIN, left back: EPIDERMAL NECROSIS SUGGESTIVE OF EXCORIATION (L98.499) 1:14 PM [facility] DERMATOPATHOLOGY LABORATORY at [address] ACCOUNT EXECUTIVE METALWORKING Clinical History A-B: R/O BCC, SCC; [place] Papule 1:14 PM [facility] DERMATOPATHOLOGY LABORATORY Gross Description Specimen A: Received [...] measuring 7x6x1 mm. Jar 0. 1:14 PM [facility] DERMATOPATHOLOGY LABORATORY Microscopic Description Specimen A. SKIN, left garcia: The epidermis is focally necrotic and covered with a subcorneal pustule and inflamed serum scale-crust containing bacteria. There is fibrin at the base. Specimen B. SKIN, left back: The epidermis is focally necrotic and covered with a scale-crust. There is fibrin at the base. 1:14 PM [facility] DERMATOPATHOLOGY LABORATORY Disclaimer An external and internal positive and negative controls are appropriate for the histochemical, immunohistochemical and immunofluorescence stain(s) in this case (if any), except where stated explicitly. The performance characteristics of the stain(s) cited in this report were developed and its performance characteristic determined by the Dermatopathology Laboratory at [facility], directed by Dr. Wilmer Turner. These tests need not be, and therefore are not, approved by the [place] Food and Drug Administration. The tests are used for clinical purposes. Billing Codes Specimen Charges Stain Charges 59308 72233 1 1 3 1:14 PM [facility] DERMATOPATHOLOGY LABORATORY Embedded Images 12/13/202 3 1:14 PM ACCOUNT EXECUTIVE METALWORKING DERMATOPATHOLOGY LABORATORY Pathology/Cytology TISSUE SPECIMEN FROM SKIN / Unknown 06/19/2023 1:23 PM ACCOUNT EXECUTIVE METALWORKING 06/20/2023 11:36 AM ACCOUNT EXECUTIVE METALWORKING Miscellaneous samples (specimen) TISSUE SPECIMEN FROM SKIN / Unknown 06/19/2023 1:23 PM ACCOUNT EXECUTIVE METALWORKING 06/20/2023 11:36 AM ACCOUNT EXECUTIVE METALWORKING us Lisa Shore MD LAB - PATHOLOGY/CYTOLOGY ORD ERABLES Final Result DERMATOPATHOLOGY LABORATORY [facility] - Department of Dermatology [facility] Specialized Medicine [address] [place] [address], [address] [phone] documented in this encounter Visit Diagnoses Not on filedocumented in this encounter
--- OUTSIDE RECORDS SUMMARY | 2025-05-05 11:45 | XMS_ITS | Encounter Summary ---
Author Organization [facility] Address [facility] [place] [address] Care Team Providers Care Admin Dir Name Role Phone Justino Majano MD Primary Care Provider [phone] Jevon Rosales DO Unavailable Steve Cruz MD Unavailable [phone] Encounter Details Date Type Department Care Team (Late st Contact Info) Description 06/19/2017 Pre-Procedure Call [facility] Interventional Radiology [place], [place] [id number] Dulce Miller, RN Social History Tobacco Use [...] 81.6 kg (180 lb) 06/19/2017 12:00 AM ORE DIGGER Height 163.8 cm (5' 4.5) 06/19/2017 12:00 AM CS T Body Mass Index 30.42 06/19/2017 12:00 AM ORE DIGGER documented in this encounter Plan of Treatment Not on file documented as of this encounter Visit Diagnoses Not on filedocumented in this encounter Care Teams Admin Dir Relationship Specialty Start Date End Date Justino Majano MD [address] [place] [address] PCP - General FAMILY PRACTICE 05/30/17 Jevon Rosales DO [address] [place], [place] [phone] INTERNAL MEDICINE 08/25/17 Steve Cruz MD [facility] [place] [address] OTOLARYNGOLOGY 08/25/17 documented as of this encounter
--- OUTSIDE RECORDS SUMMARY | 2025-05-05 11:45 | XMS_ITS | Clinical Summary ---
Author Organization [facility] Address [facility] [place] [address] Care Team Providers Care Editor School Photograph Name Role Phone Justino Majano MD Primary Care Provider [phone] Jevon Rosales DO Unavailable Steve Cruz MD Unavailable [phone] Allergies No known active allergies Medications [...] Comments Blood Pressure 125/88 09/01/2017 3:15 PM PRODUCT DELIVERY SPECIALIST Pulse 76 09/01/2017 3:15 PM PRODUCT DELIVERY SPECIALIST Temperature 36.4 C (97.5 F) 09/01/2017 3:15 PM PRODUCT DELIVERY SPECIALIST Respiratory Rate 20 09/01/2017 3:15 PM PRODUCT DELIVERY SPECIALIST Oxygen Saturation 98% 09/01/2017 3:15 PM PRODUCT DELIVERY SPECIALIST Inhaled Oxygen Concentration - - Weight 79.7 kg (175 lb 11.3 oz) 09/01/2017 6:30 AM PRODUCT DELIVERY SPECIALIST Height 163.8 cm (5' 4.5) 09/01/2017 6:30 AM PRODUCT DELIVERY SPECIALIST Body Mass Index 29.69 09/01/2017 6:30 AM PRODUCT DELIVERY SPECIALIST Plan of Treatment Health Maintenance Due Date Last Done Comments Hepatitis C 1968 DTaP, Tdap and Td Vaccines (1 - Tdap) 1969 Annual Medicare Wellness Visit 2014 Dexa Scan (General) 2014 Zoster Vaccines (2 of 3) 04/23/2015 02/26/2015 Pneumococcal Vaccine: 50+ Years (2 of 2 - PCV) 05/05/2015 05/05/2014 RSV Immunization or 60+ Years (1 - 1-dose 75+ series) 2024 COVID-19 Vaccine (1 - season) 2025 Influenza Adult (#1) 2025 05/24/2016, 05/11/2015, 05/10/2011, Additional history exists Hepatitis A Vaccines Aged Out No long er eligible based on patient's age to complete this topic Meningococcal B Vaccine Aged Out No l onger eligible based on patient's age to complete this topic Meningococcal Vaccine Aged Out No lonnie jj eligible based on patient's age to complete this topic RSV Immunizations Under 20 Months Aged Out No longer eligible based on patient's age to complete [place] [address] [facility] MEDICARE Care Teams Editor School Photograph Relationship Specialty Start Date End Date Justino Majano MD [address] [place] [address] PCP - General FAMILY PRACTICE 05/30/17 Jevon Rosales DO [address] [place] [address] INTERNAL MEDICINE 08/25/17 Steve Cruz MD [address] [place] [address] OTOLARYNGOLOGY 08/25/17
[2025-05-05 13:16] LABS: Hematocrit 41.4 % (37.0-47.0); Hemoglobin 13.2 g/dL (12.0-15.0); Immature Granulocyte Percent A 0.3 % (0-0.5); Lymphocytes Absolute Auto 2.58 K/mm3 (0.9-3.2); Mean Corpuscular HGB Conc 31.9 g/dl (32-36); Mean Corpuscular Hemoglobin 31.2 pg (26-34); Mean Corpuscular Volume 97.9 fl (80-100); Nucleated Red Blood Cells Absolute Auto 0.000 K/mm3 (0.0-0.012); Nucleated Red Blood Cells Perc 0.0 % (0.0-0.2); Platelet Count Result 299 k/mm3 (150-375); Red Blood Count 4.23 M/mm3 (4.2-5.4); White Blood Count 12.4 K/mm3 (4.5-10.0)
[2025-05-05 13:27] LABS: Alanine Aminotransferase 17 U/L (6-35); Albumin Level 4.6 g/dL (3.5-5.1); Alkaline Phosphatase 93 U/L (38-126); Anion Gap 10 mmol/L (4-12); Aspartate Amino Transferase 41 U/L (14-36); Bilirubin,Total 0.5 mg/dL (0.2-1.3); Blood Urea Nitrogen 17 mg/dL (7-17); Calcium 9.3 mg/dL (8.4-10.2); Carbon Dioxide 25 mmol/L (22-30); Chloride 101 mmol/L (98-107); Cholesterol 179 mg/dL (0-200); Estimated Glomerular Filt Rate > 60; Glucose 100 mg/dL (65-110); HDL Direct 32 mg/dL; Potassium 4.1 mmol/L (3.4-5.0); Sodium 136 mmol/L (137-145); Total Protein 8.6 g/dL (6.3-8.2); Triglycerides 215 mg/dL (<150)
[2025-05-05 15:41] LABS: Hemoglobin A1C 5.9 % (<5.7)
== END 2025-05-05 10:21 | disposition home or self-care (01) ==
PROVIDERS: PCP Family Medicine; Visit Provider Nurse Practitioner Family
DX: E78.5 Hyperlipidemia, unspecified (principal); I10 Essential (primary) hypertension; R73.03 Prediabetes
CPT/HCPCS: 36415; 80053; 80061; 83036; 85025

== ENCOUNTER 2025-06-11 14:29 | Outpatient (CLI) | payer MEDICARE, SELFPAY ==
--- NOTE | ~2025-06-11 | CT_ITS ---
CT abdomen pelvis wo con INDICATION:R10.9 - Unspecified abdominal pain . COMPARISON: None. TECHNIQUE: Axial 2.5 mm images of the abdomen were obtained without IV or oral contrast. Diagnostic sensitivity is limited due to lack of IV contrast. FINDINGS: The lung bases are clear. There is a small hiatal hernia. The liver parenchyma is unremarkable. No intrahepatic mass or ductal dilatation is evident. The gallbladder is unremarkable. The pancreas and spleen are normal in appearance. The adrenal glands are symmetric in size. The kidneys are unremarkable. No intrarenal stones are noted. There is no hydronephrosis. Bowel loops are normal in caliber. There is no evidence of bowel obstruction. There are colonic diverticulosis involving descending and sigmoid colon. There is no evidence of acute diverticulitis The bladder and rectum are normal. No free intraperitoneal fluid or air is evident. There is no significant retroperitoneal lymphadenopathy. The aorta, visceral vessels and renal arteries demonstrate normal caliber. The lower thoracic and lumbar vertebrae are in normal alignment. IMPRESSION: No acute abnormality is noted in the abdomen and pelvis. Colonic diverticulosis without evidence of acute diverticulitis. Small hiatal hernia. All CT scans at this facility are performed using low dose modulation techniques as appropriate to perform exam including the following: automated exposure control; use of iterative reconstruction technique; adjustment of the mA and/or kV according to patient size (this includes techniques or standardized protocols for targeted exams where dose is matched to indication/reason for exam). Reviewed, dictated and finalized at location S. [facility] HAND IMPRESSION: No acute abnormality is noted in the abdomen and pelvis. Colonic diverticulosis without evidence of acute diverticulitis. Small hiatal hernia. All CT scans at this facility are performed using low dose modulation techniqu es as appropriate to perform exam including the following: automated exposure c ontrol; use of iterative reconstruction technique; adjustment of the mA and/or kV according to patient size (this includes techniques or standardized protocol s for targeted exams where dose is matched to indication/reason for exam).
--- OUTSIDE RECORDS SUMMARY | 2025-06-11 15:52 | XMS_ITS | Clinical Summary ---
Author Organization [facility] Address [address] [place] [address] Care Team Providers Care Demi Chef Name Role Phone Ruthann Landaverde MD Primary Care Provider Jevon Rosales DO Unavailable [phone] Kyle Zuniga OD Unavailable Unavailable Allergies No known active allergies Medications PROAIR [...] Active Additional Information Patient not taking.Reported on 06/04/2025 fluticasone propionate (FLOVENT HFA) 220 mcg/actuation inhaler Inhale 2 puffs 2 (two) times a day Rinse mouth with water after use. Do not swallow. 1 Inhaler 11 0 Active Additional Information Patient not taking.Reported on 06/04/2025 ipratropium (ATROVENT) 0.03 % nasal spray Administer 2 sprays into each nostril 3 (three) times a day 5 mL 3 0 Active Additional Information Patient not taking.Reported on 06/04/2025 montelukast (SINGULAIR) 10 mg tablet Take 1 tablet (10 mg total) by mouth nightly 30 tablet 11 1 Active Additional Information Patient not taking.Reported on 06/04/2025 diltiazem LA (CARDIZEM LA) 360 mg 24 hr tablet Take 1 tablet (360 mg total) by mouth daily Active allopurinoL (ZYLOPRIM) 300 mg tablet Take 1 tablet (300 mg total) by mouth daily Active multivitamin with iron tablet Take 1 tablet by mouth daily Active multivitamin tablet daily 0 Active Hospital, Clinic, or Other Facility Administered Medication Ordered Dose Route Frequency Start Date End Date Status lidocaine (XYLOCAINE) 20 mg/mL (2 %) injection 3 mLIndications:Admini stration of Local Anesthesia 3 mL One-Time Injection 05/27/2025 5 Ended lidocaine (XYLOCAINE) 20 mg/mL (2 %) injection 3 mLIndications:Admini stration of Local Anesthesia 3 mL One-Time Injection 05/27/2025 5 Ended methylPREDNISolone acetate (DEPO-medrol) injection 80 mgIndications:Primar y osteoarthritis of both knees 80 mg intra-artic One-Time Injection 05/27/2025 5 Ended methylPREDNISolone acetate (DEPO-medrol) injection 80 mgIndications:Primar y osteoarthritis of both knees 80 mg intra-artic One-Time Injection 05/27/2025 5 Ended Active Problems Problem Noted Date Diagnosed Date Chronic cough 06/29/2019 Assessment & Plan (02/06/2020 11:10 AM CDT): Continue with Flonase, ipratropium nasal spray and Zyrtec. If symptoms persist may need a referral to Allergy and immunology. Assessment & Plan (11/07/2019 4:48 PM CDT): Methacholine challenge test is normal. DC QVAR. Continue with Zyrtec and Flonase. Assessment & Plan (08/10/2019 4:01 PM MOLD STAMPER): I will repeat her ESR. Obtain methacholine challenge test. Currently she is off the QVAR. If methacholine challenge test is normal she does not need to go back on QVAR. Assessment & Plan (06/29/2019 11:29 AM MOLD STAMPER): Chronic cough with differential off reactive airway [...] plan. Assessment & Plan (08/10/2019 4:01 PM MOLD STAMPER): Continue with Flonase/Zyrtec and intranasal ipratropium. Assessment & Plan (06/29/2019 11:29 AM MOLD STAMPER): Continue with Flonase and Zyrtec. Add intranasal ipratropium. Gastroesophageal reflux disease without esophagi tis 06/29/2019 Assessment & Plan (02/06/2020 11:11 AM CDT): Continue with omeprazole. Assessment & Plan (11/07/2019 4:48 PM CDT): Continue with omeprazole. Assessment & Plan (08/10/2019 4:01 PM MOLD STAMPER): Continue with omeprazole. Assessment & Plan (06/29/2019 11:30 AM MOLD STAMPER): Continue with omeprazole. 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 Orthopedic and Sports Medicine [address] [place] [phone] Susan Cantrell PA Primary osteoarthritis of both knees (Primary Dx) 05/26/2025 Telephone [facility] Medicine Ophthalmology [address] [phone] Kaz Canseco MD 05/23/2025 [facility] Medicine Ophthalmology [address] [place] [address] Kaz Canseco MD Scheduling Appointments from Last 3 Months Immunizations Immunization Administration [...] Gastroesophageal reflux disease without esophagi tis 06/29/2019 Cataract Atrial fibrillation (HCC) CHF (congestive heart failure) (HCC) Family History Medical History Relation Name Comments Cancer Father Heart disease Father Hypertension Father Throat cancer Father Diabetes Mother Hypertension Mother Heart disease Sister Hypertension Sister Stroke Sister Glaucoma Neg Hx Macular degeneration Neg Hx Thyroid disease Neg Hx Relation Name Status Comments Father Mother Sister Social History Tobacco Use Types Packs/Day Years Used Date Smoking Tobacco: Never Passive Smoke Exposure: Never Smokeless Tobacco: Never Tobacco Cessation:Counseling Given: No Comments Unknown Sex and Gender Information Value Date Recorded Sex Assigned at Not on file Legal Sex Female 9:59 AM MOLD STAMPER Gender Identity Not on file Sexual Orientation Not on file Last Filed Vital Signs Vital Sign Reading Time Taken Comments Blood Pressure 142/77 05/27/2025 8:10 AM MOLD STAMPER Pulse 79 02/06/2025 9:55 AM CDT Temperature 36.4 C (97.5 F) 02/11/2021 8:43 AM CDT Respiratory Rate 18 02/11/2021 8:43 AM CDT Oxygen Saturation 98% 02/11/2021 8:43 AM CDT Inhaled Oxygen Concentration - - Weight 79.8 kg (176 lb) 05/27/2025 8:10 AM MOLD STAMPER Height 165.1 cm (5' 5) 05/27/2025 8:10 AM MOLD STAMPER Body Mass Index 29.29 05/27/2025 8:10 AM MOLD STAMPER Plan of Treatment Health Maintenance Due Date Last Done Comments Depression Screening 1950 Fall Risk Assessment 1950 Hepatitis C Screening 1950 Osteoporosis Screening-Bone Density Scan 1950 Hepatitis B Screening 1968 Well Visit 65+ 2014 Zoster Vaccine (2 of 3) 04/23/2015 02/26/2015 Covid-19 Vaccine (3 - 2024-2 6 season) 2025 09/28/2020, 08/27/2020 Influenza Vaccine (#1) 2025 9, 05/24/2016, 05/11/2015, Additional history exists DTaP/Tdap/Td Vaccine (5 - Td or Tdap) 10/16/2028 10/16/2018, 07/10/2012, 10/07/2011, Additional history exists Colon Cancer Screening-CT Colonography Discontinued 04/15/2015 Colon Cancer Screening-Colonoscopy Discontinued 04/15/2015 Colon Cancer Screening-DNA Stool Discontinued 04/15/20 Colon Cancer Screening-FIT Discontinued 04/15/2015 Colon Cancer Screening-FOBT Discontinued 04/15/2015 Colon Cancer Screening-Sigmoidoscopy Discontinued 04/15/2015 Colorectal Cancer Screening Discontinued Pneumococcal vaccine 65+ Completed 020, 06/18/2018, 05/05/2014 Procedures Procedure Name Priority Date/Time Associated Diagnosis Comments HI ARTHROCENTESIS ASPIR&/INJ MAJOR JT/BURSA W/O US Routine 05/27/2025 8:15 AM MOLD STAMPER Primary osteoarthritis of both knees COLONOSCOPY REPORT 04/15/2015 from Last 3 Months or Most Recently Relevant to Health Maintenance Results * HI ARTHROCENTESIS ASPIR&/INJ MAJOR JT/BURSA W/O US (05/27/2025 8:15 AM MOLD STAMPER) Narrative Susan Cantrell PA - 05/27/2025 8:15 AM MOLD STAMPER Susan Cantrell PA 06/09/2025 10:59 PM Large Joint (Hip, Knee, Shoulder) Injection: bilateral [...] the procedure well with no immediate complications Susan PEREZ IN CLINIC/BEDSIDE ORDER MIMI Final Result * COLONOSCOPY REPORT (04/15/2015) Anatomical Region Laterality Modality Other Narrative 04/15/2015 Ordered by an unspecified provider. Historical Provider GI PROCEDURE ORDERABLES F inal Result from Last 3 Months or Most Recently Relevant to Health Maintenance Insurance [facility] MEDICARE [facility] MEDICARE Care Teams Demi Chef Relationship Specialty Start Date End Date Ruthann Landaverde MD PCP - General Family Practice 02/11/21 Jevon Rosales DO [address] [place] [address] [facility] [place], [place] [id number] Referring Physician Cardiology 06/04/25 Kyle Zuniga OD Referring Physician Optometry 06/04/25
--- OUTSIDE RECORDS SUMMARY | 2025-06-11 15:52 | XMS_ITS | Encounter Summary ---
Author Organization [facility] Address [address] [place] [address] Care Team Providers Care Filling Operator Name Role Phone Iris Ruano MD Unavailable [phone] Encounter Details Date Type Department Care Team (Late st Contact Info) Description 01/30/2019 Lab Requisition [facility] Care DermPath Lab [address] [facility] [place] [phone] Abdelrahman Jones MD [address] [place] [address] Social History Tobacco Use Types Packs/Day Years Used Date Smoking Tobacco: Never Smokeless Tobacco: Never Alcohol Use Standard Drinks/Week Comments No 0 (1 standard drink = 0.6 oz pur e alcohol) Comments No Sex and Gender Information Value Date Recorded Sex Assigned at Not on file Legal Sex Female 6:34 AM RESULTS ENGINEER Gender Identity Not on file Sexual Orientation [...] AM CDT) Case Report Dermatopathology Report Case: [id number] Authorizing Provider: Abdelrahman Jones MD Collected: 01/29/2019 [...] specimen consists of a shave biopsy measuring [id number]. Jar 0. 1:14 PM CDT DERMATOPATHOLOGY LABORATORY [...] characteristic determined by the Dermatopathology Laboratory at [facility], directed by Dr. Wilmer Turner. These tests need not be, and therefore are not, approved by the [place] Food and Drug Administration. The tests are used for clinical purposes. Billing Codes Specimen Charges Stain Charges 64782 1 1:14 PM CDT DERMATOPATHOLOGY LABORATORY Embedded Images 1:14 PM CDT DERMATOPATHOLOGY LABORATORY Pathology/Cytolog y TISSUE SPECIMEN FROM SKIN / Unknown 01/29/2019 01/30/2019 12:43 PM CDT us Abdelrahman Jones MD LAB - PATHOLOGY/CYTOLOGY ORD ERABLES Final Result DERMATOPATHOLOGY LABORATORY [facility] - Department of Dermatology [address] [facility], 5th Floor Lab [address] [phone] documented in this encounter Visit Diagnoses Not on filedocumented in this encounter Care Teams Filling Operator Relationship Specialty Start Date End Date Iris Ruano MD [address] [place] [address] PCP - Attributed-[facility] 05/31/18 documented as of this encounter
--- OUTSIDE RECORDS SUMMARY | 2025-06-11 15:52 | XMS_ITS | Clinical Summary ---
Author Organization [facility] Address [address] [place] [address] Care Team Providers Care Carton Counter Feeder Name Role Phone Justino Majano MD Primary Care Provider [phone] Jevon Rosales DO Unavailable Steve Cruz MD Unavailable [phone] Allergies No known active allergies Medications [...] Comments Blood Pressure 125/88 09/01/2017 3:15 PM COMPRESSOR STATION OPERATOR Pulse 76 09/01/2017 3:15 PM COMPRESSOR STATION OPERATOR Temperature 36.4 C (97.5 F) 09/01/2017 3:15 PM COMPRESSOR STATION OPERATOR Respiratory Rate 20 09/01/2017 3:15 PM COMPRESSOR STATION OPERATOR Oxygen Saturation 98% 09/01/2017 3:15 PM COMPRESSOR STATION OPERATOR Inhaled Oxygen Concentration - - Weight 79.7 kg (175 lb 11.3 oz) 09/01/2017 6:30 AM COMPRESSOR STATION OPERATOR Height 163.8 cm (5' 4.5) 09/01/2017 6:30 AM COMPRESSOR STATION OPERATOR Body Mass Index 29.69 09/01/2017 6:30 AM COMPRESSOR STATION OPERATOR Plan of Treatment Health Maintenance Due Date [...] patient's age to complete this [place] [address] [facility] MEDICARE Care Teams Carton Counter Feeder Relationship Specialty Start Date End Date Justino Majano MD [address] [place] [address] PCP - General FAMILY PRACTICE 05/30/17 Jevon Rosales DO [address] [place] [address] INTERNAL MEDICINE 08/25/17 Steve Cruz MD [address] [place] [address] OTOLARYNGOLOGY 08/25/17
--- OUTSIDE RECORDS SUMMARY | 2025-06-11 15:52 | XMS_ITS | Clinical Summary ---
Author Organization [facility] Address [address] [place] [address] Care Team Providers Care Drive In Teller Name Role Phone Unavailable Primary Care Provider Unavailabl e Source Comments [facility],non-owned Affiliates and Associated Physician Practices is amultiple site organization consisting of ambulatory clinics and hospital sitesin [place], [place], [place] and [place]. This disclosure is being madepursuant to the Care Everywhere program and may not contain all information available regarding this patient. Last updated 18.[facility] Allergies Active Allergy Reactions Criticality Noted Date [...] on file Legal Sex Female 6:34 AM TOY PACKER Gender Identity Not on file Sexual Orientation [...] AWV CALENDAR YEAR 2024 COVID-19 VACCINE ( - season) 2025 INFLUENZA VACCINE (#1) 2025 6, [...] HEPATITIS C ANTIBODY Routine 06/19/2013 9:32 AM TOY PACKER Need for hepatitis C screening test DEXA BONE DENSITY 2 SITES Routine 01/02/2013 from Last 3 Months or Most Recently Relevant to Health Maintenance Results * HEPATITIS C ANTIBODY (06/19/2013 9:32 AM TOY PACKER) Hepatitis C Antibody <0.1 0.0 - 0.9 s/co ratio [facility] INSURANCE BILL Comment: Negative: < 0.8 Indeterminate 0.8 - 0.9 Positive: > 0.9 . In order to reduce the incidence of a false positive result, the CDC recommends that all s/co ratios between 1.0 and 10.9 be confirmed by a more specific supplemental or PCR testing. [facility] offers HCV Ab w/Reflex to Verification test #[id number]. Blood specimen (specimen) BLOOD SPECIMEN / Unknown 06/19/2013 9:32 AM TOY PACKER 06/19/2013 8:43 PM TOY PACKER Narrative Resulting Agency Comment Formerly [facility] [address] [facility] [phone] us Iris Ruano MD LAB - CHEMISTRY ORDERABLES Eboni l Result [facility] INSURANCE BILL [address] [place] [address] * DEXA BONE DENSITY 2 SITES (01/02/2013) Anatomical Region Laterality Modality Other us Roland Le MD DEXA ORDERABLES Final Result from Last 3 Months or Most Recently Relevant to Health Maintenance Insurance [employer] [place] [address] [facility] MANAGED MEDICARE [place] [address]
--- OUTSIDE RECORDS SUMMARY | 2025-06-11 15:52 | XMS_ITS | Encounter Summary ---
Author Organization [facility] Address [address] [facility] [place] [address] Care Team Providers Care Spinneret Person Name Role Phone Unavailable Primary Care Provider Unavailabl e Encounter Details Date Type Department Care Team (Late st Contact Info) Description 06/19/2023 Lab Requisition [facility] - DermPath Lab [address] [facility] [place] [phone] Lisa Shore MD [address] [facility] [address] [place] [address] Social History Tobacco Use Types Packs/Day Years Used Date Smoking Tobacco: Never Smokeless Tobacco: Never Alcohol Use Standard Drinks/Week Comments No 0 (1 standard drink = 0.6 oz pur e alcohol) Comments No Sex and Gender Information Value Date Recorded Sex Assigned at Not on file Legal Sex Female 6:34 AM COMMISSARY STEWARD Gender Identity Not on file Sexual Orientation [...] Diagnosis Comments DERMATOPATHOLOGY Routine 06/19/2023 1:23 PM COMMISSARY STEWARD documented in this encounter Results * DERMATOPATHOLOGY (06/19/2023 1:23 PM COMMISSARY STEWARD) Case Report Dermatopathology Report Case: [id number] Authorizing Provider: Lisa Shore MD Collected: 06/19/2023 01:23 PM Ordering Location: [facility] DermPath Lab Received: 06/20/2023 11:36 AM Pathologist: Jayne Conte MD Specimens: A) - Skin, left garcia B) - Skin, left back 1:14 PM [facility] DERMATOPATHOLOGY LABORATORY Final Diagnosis Specimen A. 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 SKIN, left back: EPIDERMAL NECROSIS SUGGESTIVE OF EXCORIATION (L98.499) 1:14 PM [facility] DERMATOPATHOLOGY LABORATORY at [address]EWARD Clinical History A-B: R/O BCC, SCC; [place]urlison Papule 1:14 PM [facility] DERMATOPATHOLOGY LABORATORY Gross Description Specimen [...] measuring 7x6x1 mm. Jar 0. 1:14 PM [facility] DERMATOPATHOLOGY LABORATORY Microscopic Description Specimen A. SKIN, left garcia: The epidermis is focally necrotic and covered with a subcorneal pustule and inflamed serum scale-crust containing bacteria. There is fibrin at the base. Specimen B. SKIN, left back: The epidermis is focally necrotic and covered with a scale-crust. There is fibrin at the base. 1:14 PM [facility] DERMATOPATHOLOGY LABORATORY Disclaimer An external and internal positive and negative controls are appropriate for the histochemical, immunohistochemical and immunofluorescence stain(s) in this case (if any), except where stated explicitly. The performance characteristics of the stain(s) cited in this report were developed and its performance characteristic determined by the Dermatopathology Laboratory at [facility], directed by Dr. Wilmer Turner. These tests need not be, and therefore are not, approved by the [place] Food and Drug Administration. The tests are used for clinical purposes. Billing Codes Specimen Charges Stain Charges 71307 01707 1 1 3 1:14 PM [facility] DERMATOPATHOLOGY LABORATORY Embedded Images 12/13/202 3 1:14 PM COMMISSARY STEWARD DERMATOPATHOLOGY LABORATORY Pathology/Cytology TISSUE SPECIMEN FROM SKIN / Unknown 06/19/2023 1:23 PM COMMISSARY STEWARD 06/20/2023 11:36 AM COMMISSARY STEWARD Miscellaneous samples (specimen) TISSUE SPECIMEN FROM SKIN / Unknown 06/19/2023 1:23 PM COMMISSARY STEWARD 06/20/2023 11:36 AM COMMISSARY STEWARD us Lisa Shore MD LAB - PATHOLOGY/CYTOLOGY ORD ERABLES Final Result DERMATOPATHOLOGY LABORATORY [facility] - Department of Dermatology [facility] Specialized Medicine [address] [place] [address], [address] [phone] documented in this encounter Visit Diagnoses Not on filedocumented in this encounter
--- OUTSIDE RECORDS SUMMARY | 2025-06-11 15:52 | XMS_ITS | Encounter Summary ---
Author Organization [facility] Address [facility] [place] [address] Care Team Providers Care Flight Follower Name Role Phone Justino Majano MD Primary Care Provider [phone] Jevon Rosales DO Unavailable Steve Cruz MD Unavailable [phone] Encounter Details Date Type Department Care Team (Late st Contact Info) Description 06/19/2017 Pre-Procedure Call [facility] Interventional Radiology [place], [place] [id number] Dulce Miller, RN Social History Tobacco Use [...] 81.6 kg (180 lb) 06/19/2017 12:00 AM COMPLIANCE ADVISOR Height 163.8 cm (5' 4.5) 06/19/2017 12:00 AM CS T Body Mass Index 30.42 06/19/2017 12:00 AM COMPLIANCE ADVISOR documented in this encounter Plan of Treatment Not on file documented as of this encounter Visit Diagnoses Not on filedocumented in this encounter Care Teams Flight Follower Relationship Specialty Start Date End Date Justino Majano MD [address] [place] [address] PCP - General FAMILY PRACTICE 05/30/17 Jevon Rosales DO [address] [place], [place] [id number] INTERNAL MEDICINE 08/25/17 Steve Cruz MD [facility] [place] [address] OTOLARYNGOLOGY 08/25/17 documented as of this encounter
== END 2025-06-11 14:30 | disposition home or self-care (01) ==
PROVIDERS: PCP Family Medicine; Visit Provider Nurse Practitioner Family
DX: R10.9 Unspecified abdominal pain (principal); K57.30 Diverticulosis of large intestine without perforation or abscess without bleeding; K44.9 Diaphragmatic hernia without obstruction or gangrene
CPT/HCPCS: 74176